=== PATIENT | male | born 1930 ===

== ENCOUNTER 2017-09-15 14:50 | Inpatient (IN) | payer MEDICARE, BC ==
[~2017-09-15] VITALS: Ht 167.6 cm; Wt 87.7 kg
--- NOTE | 2017-09-15 18:38 | PDOC ---
Exam Note: Arik Note: Please also refer to the separate dictated note~for this date of service dictated separately.~Patient seen individually. Discussed the patient with Nursing staff reviewed the chart.~Reviewed interim history and current functioning. Reviewed vital signs,~Labs/ Radiology~and current medications noted below. Continue current treatment with the changes noted in the dictated addendum note Current Medications: I have reviewed the current psychotropics carefully including drug interactions. Risk benefit ratio favors no change other than as noted in my dictated progress note. Diagnosis: Problems: (1) Anxiety disorder (2) Dementia in Alzheimer's disease with delusions (3) Dementia in Alzheimer's disease with depression (4) Dementia, vascular, with delusions (5) Dementia, vascular, with depression (6) Impulse control disorder JAJA SIERRA MD September 15, 2017 18:38
[2017-09-15 18:42] VITALS: BP 156/79
[2017-09-15] MEDS ORDERED: ACETAMINOPHEN 325 MG TABLET PO PRN (19:30)
[2017-09-15] MEDS ORDERED: MAG HYDROX/AL HYDROX/SIMETH 30 ML ORAL.SUSP PO PRN (19:30)
[2017-09-15] MEDS ORDERED: MAGNESIUM HYDROXIDE 2,400 MG/30 ML ORAL.SUSP. PO PRN (19:30)
[2017-09-15] MEDS ORDERED: METHYL SALICYLATE/MENTHOL TOPICAL OINTMENT 29GM TUBE. TP PRN (19:30)
[2017-09-15] MEDS ORDERED: AMLO10TA2 PO (19:31)
[2017-09-15] MEDS ORDERED: METF10003 PO (19:31)
[2017-09-15] MEDS ORDERED: TAMS0.4C2 PO (19:31)
[2017-09-15] MEDS ORDERED: DONE10TA7 PO (19:31)
[2017-09-15] MEDS ORDERED: GLIM4TAB2 PO (19:31)
[2017-09-15] MEDS ORDERED: METO50TA29 PO (19:31)
--- NOTE | 2017-09-15 21:39 | HP ---
ADMIT DATE: 09/15/2017 PSYCHIATRIC ADMISSION HISTORY/EVALUATION This note covers elements not covered in my initial note 09/15/2017. IDENTIFYING DATA: The patient is an 86-year-old male referred to us from the [facility] Emergency Room where he presented from home after the called the police on account of getting aggressive towards his . His was concerned about her own safety and that of his. He has been resistive with cares with his , getting increasingly confused, having multiple accidents in a day and then wanting to leave the house when his was trying to clean him up. He had other misperceptions believing a window was open and there may be people coming into the home amongst other things. He has had some sleep and appetite changes, worsening confusion resulting in the referral to the ER and then to us for inpatient psychiatric stabilization. CHIEF COMPLAINT: "I have been living in [place] for 1-1/2 years. [place] got [place] 1-1[place]2 years ago." Met with the patient's evening of 09/15/2017 together with the patient, discussed with nursing staff. Previously, I discussed with nursing staff together historical information from the [facility] ER. HISTORY OF PRESENT ILLNESS: The patient has a history of dementia, Alzheimer, vascular type. He has been residing at home with his of 16 years, taking care of him. More recently, he has been getting more delusional increasingly confused. He has had some sleep and appetite changes. Appears paranoid, losing some of his remote memory as well. was concerned about her own safety and that of his, resulting in her calling the police and then to the ER. No history of bipolar disorder. PAST PSYCHIATRIC HISTORY: As above. MEDICAL HISTORY: GERD, hypertension, diabetes mellitus, skin cancer bilateral on the ear, ear surgery, collarbone fracture as a child. DRUG ALLERGIES: Negative. Accu-Cheks a.c. and at bedtime. DIET: Regular, takes his medications whole, ambulates independently. CURRENT PSYCHOTROPICS: EMRAD was reviewed. FAMILY HISTORY: Noncontributory. SOCIAL HISTORY: The patient is a of the [place]. He worked for [employer] for 40+ years after he left service. I am not aware of any alcohol or drug abuse, physical, sexual or elder abuse history. He is not known to be a perpetrator. REACTION TO HOSPITALIZATION: The patient oblivious to this. ASSETS: The patient has a supportive . His primary care physician in [place] is Dr. Yoni Sauer, who had delegated reactivation of the DPOA status to the ER physician at [facility]. MENTAL STATUS EXAMINATION: The patient was seen individually evening of 09/15/2017. He is quite pleasant, oriented to himself, oblivious of his surroundings. Insight, judgment, recent and remote memory, attention, concentration, fund of knowledge poor, consistent with his diagnosis. His memory seems to go back to loss of the [place] or soon thereafter. LABORATORY DATA: Reviewed. IMPRESSION: Major neurocognitive disorder, probably vascular with delusion, depression; anxiety disorder, unspecified; impulse control disorder, unspecified; major neurocognitive disorder, possibly Alzheimer with delusion, depression, behavioral disturbance. Rest diagnoses as above. PLAN: Admit to Geropsychiatry Unit at [facility]. I will see the patient daily individually from a psychiatric standpoint. We will continue current psychotropic, start Zyprexa p.r.n. psychosis, agitation. Observe baseline, then make further adjustments. Medical followup per Dr. Valenzuela/Dr. Diana. JAJA SIERRA MD DR: BENNY/jose alberto JOB#: [id number] / [id number]
[2017-09-16 06:19] VITALS: BP 135/60
[2017-09-16 07:52] LABS: BASO % 0 % (0-3); EOS # 0.3 x10^3/uL (0.0-0.7); EOS % 2 % (0-3); HEMOGLOBIN 15.6 g/dL (13.0-17.5); LYMPH # 3.6 x10^3/uL (1.0-4.8); LYMPH % 33 % (24-48); MEAN CORPUSCULAR HEMOGLOBIN 30 pg (25-35); MEAN CORPUSCULAR HGB CONC 34 g/dL (31-37); MEAN CORPUSCULAR VOLUME 89 fL (79-100); MONO # 1.1 x10^3/uL (0.0-1.1); MONO % 10 % (0-9); NEUT % 55 % (31-73); PLATELET COUNT 313 x10^3/uL (140-400); RED CELL DISTRIBUTION WIDTH 13.4 % (11.5-14.5)
[2017-09-16] MEDS ORDERED: metFORMIN 500 MG TABLET PO SCH (08:00)
[2017-09-16 08:05] LABS: ALBUMIN 3.7 g/dL (3.4-5.0); ALBUMIN/GLOBULIN RATIO 0.9 (1.0-1.7); CALCIUM 8.3 mg/dL (8.5-10.1); CREATININE 0.9 mg/dL (0.7-1.3); GFR 80.2; TOTAL BILIRUBIN 1.1 mg/dL (0.2-1.0); TOTAL PROTEIN 7.6 g/dL (6.4-8.2)
[2017-09-16 09:18] VITALS: BP 140/66
[2017-09-16] MEDS: GLIMEPIRIDE 2 MG TABLET PO SCH (09:38)
[2017-09-16] MEDS: TAMSULOSIN 0.4 MG CAP.ER.24H. PO SCH (09:38)
[2017-09-16] MEDS: METOPROLOL SUCC 24HR ER 50 MG TAB.ER.24H. PO SCH (09:39)
[2017-09-16] MEDS: amLODIPine BESYLATE 10 MG TABLET PO SCH (09:39)
[2017-09-16] MEDS: DONEPEZIL HCL 10 MG TABLET PO SCH (09:40)
[2017-09-16 14:29] LABS: THYROID STIM HORMONE (TSH) 3.358 uIU/mL (0.358-3.740)
[2017-09-16 16:26] VITALS: BP 120/73
--- NOTE | 2017-09-16 17:01 | EKG ---
[address] [address] Test Date: 2017-09-16 Test Time: 14:26:19 Pat Name: TAVIA CADENA Department: Room: [facility] 1 Gender: M [employer] Executive Director: RADU : 1930 Requested By: JAJA SIERRA Order Number: [id number] Reading MD: Junior Raza MD Measurements Intervals [place] Rate: 71 P: 0 CT: 192 QRS: 13 QRSD: 94 T: 15 QT: 402 QTc: 442 Interpretive Statements SINUS RHYTHM ATRIAL PREMATURE COMPLEX(ES) QRS(T) CONTOUR ABNORMALITY CONSISTENT WITH INFERIOR INFARCT PROBABLY OLD Electronically Signed On 09-17-2017 12:55:03 CDT by Junior Raza MD
[2017-09-16 19:10] LABS: T3 TOTAL 87 ng/dL (71-180); THYROXINE 5.8 ug/dL (4.5-12.0)
--- NOTE | 2017-09-16 20:52 | PDOC ---
Exam Note: Arik Note: Please also refer to the separate dictated note~for this date of service dictated separately.~Patient seen individually. Discussed the patient with Nursing staff reviewed the chart.~Reviewed interim history and current functioning. Reviewed vital signs,~Labs/ Radiology~and current medications noted below. Continue current treatment with the changes noted in the dictated addendum note Assessment: Vital Signs: Vital Signs Date Time Temp Pulse Resp B/P (MAP) Pulse Ox O2 Delivery O2 Flow Rate FiO2 09/16/17 16:26 97.3 67 16 120/73 (89) 98 I&O Intake and Output 09/16/17 07:00 Intake Total 120 ml Balance 120 ml Intake Oral 120 ml Labs: Laboratory Tests Test 09/16/17 07:32 09/16/17 07:37 Glucose (Fingerstick) 130 mg/dL (70-99) H White Blood Count 11.0 x10^3/uL (4.0-11.0) Red Blood Count 5.20 x10^6/uL (4.30-5.70) Hemoglobin 15.6 g/dL (13.0-17.5) Hematocrit 46.0 % (39.0-53.0) Mean Corpuscular Volume 89 fL (79-100) Mean Corpuscular Hemoglobin 30 pg (25-35) Mean Corpuscular Hemoglobin Concent 34 g/dL (31-37) Red Cell Distribution Width 13.4 % (11.5-14.5) Platelet Count 313 x10^3/uL (140-400) Neutrophils (%) (Auto) 55 % (31-73) Lymphocytes (%) (Auto) 33 % (24-48) Monocytes (%) (Auto) 10 % (0-9) H Eosinophils (%) (Auto) 2 % (0-3) Basophils (%) (Auto) 0 % (0-3) Neutrophils # (Auto) 6.0 x10^3uL (1.8-7.7) Lymphocytes # (Auto) 3.6 x10^3/uL (1.0-4.8) Monocytes # (Auto) 1.1 x10^3/uL (0.0-1.1) Eosinophils # (Auto) 0.3 x10^3/uL (0.0-0.7) Basophils # (Auto) 0.0 x10^3/uL (0.0-0.2) Sodium Level 140 mmol/L (136-145) Potassium Level 4.0 mmol/L (3.5-5.1) Chloride Level 106 mmol/L (98-107) Carbon Dioxide Level 25 mmol/L (21-32) Anion Gap 9 (6-14) Blood Urea Nitrogen 19 mg/dL (8-26) Creatinine 0.9 mg/dL (0.7-1.3) Estimated GFR (Cockcroft-Gault) 80.2 BUN/Creatinine Ratio 21 (6-20) H Glucose Level 141 mg/dL (70-99) H Calcium Level 8.3 mg/dL (8.5-10.1) L Iron Level 75 ug/dL (65-175) Total Iron Binding Capacity 326 ug/dL (250-450) Iron Saturation 23 % (15-34) Total Bilirubin 1.1 mg/dL (0.2-1.0) H Aspartate Amino Transferase (AST) 15 U/L (15-37) Alanine Aminotransferase (ALT) 25 U/L (16-63) Alkaline Phosphatase 43 U/L (46-116) L Total Protein 7.6 g/dL (6.4-8.2) Albumin 3.7 g/dL (3.4-5.0) Albumin/Globulin Ratio 0.9 (1.0-1.7) L Triglycerides Level 132 mg/dL (0-150) Cholesterol Level 152 mg/dL (0-200) LDL Cholesterol, Calculated 86 mg/dL (0-100) VLDL Cholesterol, Calculated 26 mg/dL (0-40) Non-HDL Cholesterol Calculated 112 mg/dL (0-129) HDL Cholesterol 40 mg/dL (40-60) Cholesterol/HDL Ratio 3.0 Vitamin B12 Level 372 pg/mL (247-911) 25-Hydroxy Vitamin D Total 28.0 ng/mL (30-100) L Thyroid Stimulating Hormone (TSH) 3.358 uIU/mL (0.358-3.740) Thyroxine (T4) 5.8 ug/dL (4.5-12.0) Total Triiodothyronine (TT3) 87 ng/dL (71-180) Rapid Plasma Reagin Pending Current Medications: Meds: Current Medications Olanzapine (ZyPREXA ZYDIS) 2.5 mg PRN Q2HR PRN PO PSYCHOSIS; Start 09/15/17 at 18:45 Acetaminophen (Tylenol) 650 mg PRN Q6HRS PRN PO PAIN / TEMP; Start 09/15/17 at 19:30 Multi-Ingredient Ointment (Analgesic [place]) 1 rosalino PRN QID PRN TP MUSCLE PAIN; Start 09/15/17 at 19:30 Al Hydroxide/Mg Hydroxide (Mylanta Plus Xs) 15 ml PRN AFTMEALHC PRN PO DYSPEPSIA; Start 09/15/17 at 19:30 Magnesium Hydroxide (Milk Of Magnesia) 2,400 mg PRN QHS PRN PO CONSTIPATION; Start 09/15/17 at 19:30 Donepezil HCl (Aricept) 10 mg DAILY PO Last administered on 09/16/17at 09:40; Start 09/16/17 at 09:00 Amlodipine Besylate (Norvasc) 10 mg DAILY PO Last administered on 09/16/17at 09: 39; Start 09/16/17 at 09:00 Metoprolol Succinate (Toprol Xl) 50 mg DAILY PO Last administered on 09/16/17at 09:39; Start 09/16/17 at 09:00 Tamsulosin HCl (Flomax) 0.4 mg DAILY PO Last administered on 09/16/17at 09:38; Start 09/16/17 at 09:00 Glimepiride (Amaryl) 8 mg DAILYWBKFT PO Last administered on 09/16/17at 09:38; Start 09/16/17 at 08:00 Metformin HCl (Glucophage) 1,000 mg BIDWMEALS PO Last administered on 09/16/17at 09:38; Start 09/16/17 at 08:00; Stop 09/16/17 at 12:37; Status DC Metformin HCl (Glucophage Xr) 1,000 mg BIDWMEALS PO ; Start 09/17/17 at 08:00 Vitamin D (Vitamin D3) 50,000 unit WEEKLY PO ; Start 09/17/17 at 09:00 Quetiapine Fumarate (SEROquel) 25 mg HS PO ; Start 09/16/17 at 21:00 Active Scripts Active Reported Metoprolol Succinate ( Xl ) (Metoprolol Succinate) 50 Mg Tab.er.24h 50 Mg PO DAILY Metformin Hcl 1,000 Mg Tablet 1,000 Mg PO BIDWMEALS Amlodipine Besylate 10 Mg Tablet 10 Mg PO DAILY Tamsulosin Hcl 0.4 Mg Cap.er.24h 0.4 Mg PO DAILY Glimepiride 4 Mg Tablet 8 Mg PO DAILY Donepezil Hcl 10 Mg Tablet 10 Mg PO DAILY I have reviewed the current psychotropics carefully including drug interactions. Risk benefit ratio favors no change other than as noted in my dictated progress note. Diagnosis: Problems: (1) Anxiety disorder (2) Impulse control disorder (3) Dementia, vascular, with depression (4) Dementia, vascular, with delusions (5) Dementia in Alzheimer's disease with depression (6) Dementia in Alzheimer's disease with delusions JAJA SIERRA MD September 16, 2017 20:52
[2017-09-16] MEDS: QUEtiapine 25 MG TABLET. PO SCH (20:53)
--- NOTE | 2017-09-17 03:12 | CONS ---
DATE OF CONSULTATION: REASON FOR CONSULTATION: Medical management. HISTORY OF PRESENT ILLNESS: The patient is an 86-year-old male patient, who was referred from [facility] Emergency Room. He presented from home after the called the police on account of getting aggressive towards her. His is concerned about her own safety and that of his. He has been resistive with cares with his , getting increasingly confused, having multiple accidents in a day, wanting to leave the house when his was trying to clean him up. Given that he has worsening confusion, he was admitted to this unit for inpatient psychiatric stabilization. When I questioned him, he denied any complaint. PAST MEDICAL HISTORY: Significant for hypertension, type 2 diabetes, hyperlipidemia, benign prostatic hypertrophy, and gastroesophageal reflux disease. PAST PSYCHIATRIC HISTORY: Significant for dementia, Alzheimer, vascular type. He apparently has been residing at home with his for the last 16 years, has been getting more delusional, increasingly confused. PAST SURGICAL HISTORY: Significant for skin cancer, bilateral ____, ear surgery, collar bone fracture as a child. ALLERGIES: The patient has no known drug allergies. MEDICATIONS: He is currently on following medications: Aricept 10 mg at bedtime, Flomax 0.4 mg at bedtime, metoprolol succinate 50 mg once a day, amlodipine besylate 10 mg once a day, metformin 1000 mg twice a day with meals, and glimepiride 8 mg daily. REVIEW OF SYSTEMS: As per history of present illness. PHYSICAL EXAMINATION GENERAL: When I saw him this afternoon, he was sitting comfortably in his chair, eating his lunch, in no apparent distress, was slightly pale, but no jaundice, cyanosis, or thyromegaly. No jugular venous distension. No limb edema. VITAL SIGNS: Her heart rate was 77, blood pressure was 140/66, temperature was 98.4, respiratory rate was 18 and oxygen saturation was 96%. HEAD, EYES, EARS, NOSE, and THROAT: Showed he is normocephalic, atraumatic. NECK: Supple. HEART: Showed normal first and second sounds. No gallop, rub or murmur. CHEST: Clear to auscultation. No crepitation or rhonchi. ABDOMEN: Distended, soft, nontender. No guarding or rigidity. No organomegaly. Hernial orifice intact. Bowel sounds normal. NEUROLOGIC: He was demented, but without any obvious lateralizing sign. He is an awake and alert. All his cranial nerves are intact. EXTREMITIES: He moves extremities without difficulty. He ambulates without assistance or assistive devices. LABORATORY DATA: Showed a serum sodium of 140, potassium 4, chloride 106, bicarbonate 25, anion gap of 9, BUN 19, creatinine 0.9, estimated GFR was 80 mL per minute, his glucose was 141, calcium was 8.3. Total bilirubin, AST, ALT, alkaline phosphatase were normal. Total protein 7.6 and albumin 3.7. White cell count was 11,000, hemoglobin 11, hematocrit 46, MCV 89 and platelet count 313,000 and so in all in all the, the patient seems to be medically stable. His vital signs, his lab work are within acceptable range and medications seem to be appropriate. He does have diarrhea and that could be the result of metformin. I will change that to the extended release form. I will follow all the lab work that are still pending at the time of this dictation and make any necessary recommendation. Thank you, Dr. Parr for allowing me to participate in the care of this patient. JOCELYN CABRERA MD DR: LUNA/jose alberto JOB#: [id number] / [id number]
[2017-09-17 06:13] VITALS: BP 137/67
[2017-09-17 07:14] LABS: HEMOGLOBIN A1C 6.2 % (4.8-5.6)
[2017-09-17] MEDS: amLODIPine BESYLATE 10 MG TABLET PO SCH (09:28)
[2017-09-17] MEDS: DONEPEZIL HCL 10 MG TABLET PO SCH (09:28)
[2017-09-17] MEDS: METOPROLOL SUCC 24HR ER 50 MG TAB.ER.24H. PO SCH (09:28)
[2017-09-17] MEDS: GLIMEPIRIDE 2 MG TABLET PO SCH (09:28)
[2017-09-17] MEDS: TAMSULOSIN 0.4 MG CAP.ER.24H. PO SCH (09:28)
[2017-09-17] MEDS: metFORMIN XR 500 MG TAB.ER.24H PO SCH ×2 (09:31→18:07)
[2017-09-17] MEDS: CHOLECALCIFEROL (VITAMIN D3) 50,000 UNIT CAPSULE PO SCH (09:31)
[2017-09-17 16:08] VITALS: BP 134/68
[2017-09-17] MEDS ORDERED: CHOL500021 PO (16:29)
[2017-09-17] MEDS: QUEtiapine 25 MG TABLET. PO SCH (20:31)
--- NOTE | 2017-09-17 20:44 | PDOC ---
Exam Note: Arik Note: Please also refer to the separate dictated note~for this date of service dictated separately.~Patient seen individually. Discussed the patient with Nursing staff reviewed the chart.~Reviewed interim history and current functioning. Reviewed vital signs,~Labs/ Radiology~and current medications noted below. Continue current treatment with the changes noted in the dictated addendum note Assessment: Vital Signs: Vital Signs Date Time Temp Pulse Resp B/P (MAP) Pulse Ox O2 Delivery O2 Flow Rate FiO2 09/17/17 16:08 97.9 72 20 134/68 (90) 96 I&O Intake and Output 09/17/17 07:00 Intake Total 1200 ml Balance 1200 ml Intake Oral 1200 ml Labs: Laboratory Tests Test 09/17/17 07:27 09/17/17 16:50 09/17/17 19:16 Glucose (Fingerstick) 88 mg/dL (70-99) 89 mg/dL (70-99) 138 mg/dL (70-99) H Current Medications: Meds: Current Medications Olanzapine (ZyPREXA ZYDIS) 2.5 mg PRN Q2HR PRN PO PSYCHOSIS; Start 09/15/17 at 18:45 Acetaminophen (Tylenol) 650 mg PRN Q6HRS PRN PO PAIN / TEMP; Start 09/15/17 at 19:30 Multi-Ingredient Ointment (Analgesic [facility]) 1 rosalino PRN QID PRN TP MUSCLE PAIN; Start 09/15/17 at 19:30 Al Hydroxide/Mg Hydroxide (Mylanta Plus Xs) 15 ml PRN AFTMEALHC PRN PO DYSPEPSIA; Start 09/15/17 at 19:30 Magnesium Hydroxide (Milk Of Magnesia) 2,400 mg PRN QHS PRN PO CONSTIPATION; Start 09/15/17 at 19:30 Donepezil HCl (Aricept) 10 mg DAILY PO Last administered on 09/17/17at 09:28; Start 09/16/17 at 09:00 Amlodipine Besylate (Norvasc) 10 mg DAILY PO Last administered on 09/17/17at 09: 28; Start 09/16/17 at 09:00 Metoprolol Succinate (Toprol Xl) 50 mg DAILY PO Last administered on 09/17/17at 09:28; Start 09/16/17 at 09:00 Tamsulosin HCl (Flomax) 0.4 mg DAILY PO Last administered on 09/17/17 09:28; Start 09/16/17 at 09:00 Glimepiride (Amaryl) 8 mg DAILYWBKFT PO Last administered on 09/17/17 09:28; Start 09/16/17 at 08:00 Metformin HCl (Glucophage) 1,000 mg BIDWMEALS PO Last administered on 09/16/17at 09:38; Start 09/16/17 at 08:00; Stop 09/16/17 at 12:37; Status DC Metformin HCl (Glucophage Xr) 1,000 mg BIDWMEALS PO Last administered on 18:07; Start 09/17/17 at 08:00 Vitamin D (Vitamin D3) 50,000 unit WEEKLY PO Last administered on 09/17/17 09: 31; Start 09/17/17 at 09:00 Quetiapine Fumarate (SEROquel) 25 mg HS PO Last administered on 09/17/17 20:31 ; Start 09/16/17 at 21:00 Active Scripts Active Reported Metoprolol Succinate ( Xl ) (Metoprolol Succinate) 50 Mg Tab.er.24h 50 Mg PO DAILY Metformin Hcl 1,000 Mg Tablet 1,000 Mg PO BIDWMEALS Amlodipine Besylate 10 Mg Tablet 10 Mg PO DAILY Tamsulosin Hcl 0.4 Mg Cap.er.24h 0.4 Mg PO DAILY Glimepiride 4 Mg Tablet 8 Mg PO DAILY Donepezil Hcl 10 Mg Tablet 10 Mg PO DAILY I have reviewed the current psychotropics carefully including drug interactions. Risk benefit ratio favors no change other than as noted in my dictated progress note. Diagnosis: Problems: (1) Anxiety disorder (2) Impulse control disorder (3) Dementia, vascular, with depression (4) Dementia, vascular, with delusions (5) Dementia in Alzheimer's disease with depression (6) Dementia in Alzheimer's disease with delusions JAJA SIERRA MD September 17, 2017 20:44
--- NOTE | 2017-09-17 22:16 | PN ---
DATE: 09/16/2017 This late entry for 09/16/2017 covers elements not covered in my initial note of 09/16/2017. SUBJECTIVE: I met with the patient evening of 09/16/2017. The patient slept 6 hours previous evening. He has had some loose stools at home. Stool sample sent for C. difficile. Metformin changed to extended release in case this is contributing to the diarrhea. UA is negative. He is alert, oriented to his date of and name, but nothing else, compliant with medications, delusional, looking for his , felt he was in [place], [place]. EKG unremarkable. REVIEW OF SYSTEMS: No CV, , pulmonary, eye system symptoms on review. MENTAL STATUS EXAM: Oriented to himself. Insight, judgment, recent and remote memory, attention, concentration, fund of knowledge poor, consistent with his diagnosis. IMPRESSION: Major neurocognitive disorder, Alzheimer, vascular with delusion, depression Rest unchanged. PLAN: Start Seroquel 25 mg p.o. at bedtime. Rest unchanged from initial note. MAN Caitlin SIERRA MD DR: BENNY/jose alberto JOB#: [id number] / [id number]
[2017-09-18 05:53] VITALS: BP 156/79
[2017-09-18] MEDS: DONEPEZIL HCL 10 MG TABLET PO SCH (08:06)
[2017-09-18] MEDS: metFORMIN XR 500 MG TAB.ER.24H PO SCH ×2 (08:06→17:16)
[2017-09-18] MEDS: METOPROLOL SUCC 24HR ER 50 MG TAB.ER.24H. PO SCH (08:06)
[2017-09-18] MEDS: amLODIPine BESYLATE 10 MG TABLET PO SCH (08:07)
[2017-09-18] MEDS: GLIMEPIRIDE 2 MG TABLET PO SCH (08:07)
[2017-09-18] MEDS: TAMSULOSIN 0.4 MG CAP.ER.24H. PO SCH (08:07)
[2017-09-18 18:10] VITALS: BP 120/65
[2017-09-18] MEDS ORDERED: traZODone 50 MG TABLET. PO PRN (18:45)
[2017-09-18] MEDS: SERTRALINE 25 MG TABLET. PO SCH (19:35)
[2017-09-18] MEDS: QUEtiapine 25 MG TABLET. PO SCH (19:35)
--- NOTE | 2017-09-18 22:11 | PDOC ---
Exam Note: Arik Note: Please also refer to the separate dictated note~for this date of service dictated separately.~Patient seen individually. Discussed the patient with Nursing staff reviewed the chart.~Reviewed interim history and current functioning. Reviewed vital signs,~Labs/ Radiology~and current medications noted below. Continue current treatment with the changes noted in the dictated addendum note Assessment: Vital Signs: Vital Signs Date Time Temp Pulse Resp B/P (MAP) Pulse Ox O2 Delivery O2 Flow Rate FiO2 09/18/17 18:10 97.9 60 16 120/65 (83) 95 I&O Intake and Output 09/18/17 07:00 Intake Total 1800 ml Balance 1800 ml Intake Oral 1800 ml Labs: Laboratory Tests Test 09/18/17 07:20 Glucose (Fingerstick) 121 mg/dL (70-99) H Current Medications: Meds: Current Medications Olanzapine (ZyPREXA ZYDIS) 2.5 mg PRN Q2HR PRN PO PSYCHOSIS; Start 09/15/17 at 18:45 Acetaminophen (Tylenol) 650 mg PRN Q6HRS PRN PO PAIN / TEMP; Start 09/15/17 at 19:30 Multi-Ingredient Ointment (Analgesic [place]) 1 rosalino PRN QID PRN TP MUSCLE PAIN; Start 09/15/17 at 19:30 Al Hydroxide/Mg Hydroxide (Mylanta Plus Xs) 15 ml PRN AFTMEALHC PRN PO DYSPEPSIA; Start 09/15/17 at 19:30 Magnesium Hydroxide (Milk Of Magnesia) 2,400 mg PRN QHS PRN PO CONSTIPATION; Start 09/15/17 at 19:30 Donepezil HCl (Aricept) 10 mg DAILY PO Last administered on 09/18/17at 08:06; Start 09/16/17 at 09:00 Amlodipine Besylate (Norvasc) 10 mg DAILY PO Last administered on 09/18/17at 08: 07; Start 09/16/17 at 09:00 Metoprolol Succinate (Toprol Xl) 50 mg DAILY PO Last administered on 09/18/17at 08:06; Start 09/16/17 at 09:00 Tamsulosin HCl (Flomax) 0.4 mg DAILY PO Last administered on 09/18/17at 08:07; Start 09/16/17 at 09:00 Glimepiride (Amaryl) 8 mg DAILYWBKFT PO Last administered on 09/18/17 08:07; Start 09/16/17 at 08:00 Metformin HCl (Glucophage) 1,000 mg BIDWMEALS PO Last administered on 09/16/17at 09:38; Start 09/16/17 at 08:00; Stop 09/16/17 at 12:37; Status DC Metformin HCl (Glucophage Xr) 1,000 mg BIDWMEALS PO Last administered on at 17:16; Start 09/17/17 at 08:00 Vitamin D (Vitamin D3) 50,000 unit WEEKLY PO Last administered on 09/17/17at 09: 31; Start 09/17/17 at 09:00 Quetiapine Fumarate (SEROquel) 25 mg HS PO Last administered on 09/18/17at 19:35 ; Start 09/16/17 at 21:00 Trazodone HCl (Desyrel) 50 mg PRN QHS PRN PO INSOMNIA, SEPTEMBER REPEAT X1; Start 09/18/17 at 18:45 Sertraline HCl (Zoloft) 25 mg QHS PO Last administered on 09/18/17at 19:35; Start 09/18/17 at 21:00 Active Scripts Active Reported Metoprolol Succinate ( Xl ) (Metoprolol Succinate) 50 Mg Tab.er.24h 50 Mg PO DAILY Metformin Hcl 1,000 Mg Tablet 1,000 Mg PO BIDWMEALS Amlodipine Besylate 10 Mg Tablet 10 Mg PO DAILY Tamsulosin Hcl 0.4 Mg Cap.er.24h 0.4 Mg PO DAILY Glimepiride 4 Mg Tablet 8 Mg PO DAILY Donepezil Hcl 10 Mg Tablet 10 Mg PO DAILY I have reviewed the current psychotropics carefully including drug interactions. Risk benefit ratio favors no change other than as noted in my dictated progress note. Diagnosis: Problems: (1) Anxiety disorder (2) Impulse control disorder (3) Dementia, vascular, with depression (4) Dementia, vascular, with delusions (5) Dementia in Alzheimer's disease with depression (6) Dementia in Alzheimer's disease with delusions JAJA SIERRA MD September 18, 2017 22:11
--- NOTE | 2017-09-19 00:20 | PN ---
DATE: 09/17/2017 This late entry for 09/17/2017 covers the elements not covered in my initial note 09/17/2017. I met with the patient in the evening. The patient slept 5-3/4 hours previous evening. Has been wandering, confused, otherwise pleasant, compliant with medications. Stool sample was negative for C. diff. EKG, QT corrected is 442 milliseconds. We will repeat EKG on Saturday in 2 days. REVIEW OF SYSTEMS: No CV, , pulmonary, eye, ENT system symptoms on review. Reliability poor. MENTAL STATUS EXAM: Oriented to himself. Insight, judgment, recent and remote memory, attention, concentration, fund of knowledge poor, consistent with his diagnosis. IMPRESSION: Major neurocognitive disorder, vascular with delusion, depression, behavioral disturbance. Rest unchanged. PLAN: Continue current psychotropics, start Zoloft 25 mg a day. Maintain Seroquel 25 mg at bedtime. MAN Caitlin SIERRA MD DR: BENNY/jose alberto JOB#: [id number] / [id number]
[2017-09-19 06:30] VITALS: BP 151/67
[2017-09-19] MEDS: GLIMEPIRIDE 2 MG TABLET PO SCH (08:00)
[2017-09-19] MEDS: TAMSULOSIN 0.4 MG CAP.ER.24H. PO SCH (09:00)
[2017-09-19] MEDS: DONEPEZIL HCL 10 MG TABLET PO SCH (09:00)
[2017-09-19] MEDS: METOPROLOL SUCC 24HR ER 50 MG TAB.ER.24H. PO SCH (09:00)
[2017-09-19] MEDS: amLODIPine BESYLATE 10 MG TABLET PO SCH (09:00)
[2017-09-19] MEDS: metFORMIN XR 500 MG TAB.ER.24H PO SCH ×2 (16:28→16:47)
[2017-09-19 18:09] VITALS: BP 127/58
[2017-09-19] MEDS: QUEtiapine 25 MG TABLET. PO SCH (19:57)
[2017-09-19] MEDS: SERTRALINE 25 MG TABLET. PO SCH (19:57)
--- NOTE | 2017-09-19 20:41 | PDOC ---
Exam Note: Arik Note: Please also refer to the separate dictated note~for this date of service dictated separately.~Patient seen individually. Discussed the patient with Nursing staff reviewed the chart.~Reviewed interim history and current functioning. Reviewed vital signs,~Labs/ Radiology~and current medications noted below. Continue current treatment with the changes noted in the dictated addendum note Assessment: Vital Signs: Vital Signs Date Time Temp Pulse Resp B/P (MAP) Pulse Ox O2 Delivery O2 Flow Rate FiO2 09/19/17 18:09 97.2 66 20 127/58 (81) 96 09/19/17 06:30 Room Air I&O Intake and Output 09/19/17 07:00 Intake Total 1320 ml Output Total 1 ml Balance 1319 ml Intake Oral 1320 ml Output Urine Total 1 ml Labs: Laboratory Tests Test 09/19/17 07:33 Glucose (Fingerstick) 122 mg/dL (70-99) H Current Medications: Meds: Current Medications Olanzapine (ZyPREXA ZYDIS) 2.5 mg PRN Q2HR PRN PO PSYCHOSIS Last administered on 09/19/17at 16:29; Start 09/15/17 at 18:45 Acetaminophen (Tylenol) 650 mg PRN Q6HRS PRN PO PAIN / TEMP; Start 09/15/17 at 19:30 Multi-Ingredient Ointment (Analgesic [place]) 1 rosalino PRN QID PRN TP MUSCLE PAIN; Start 09/15/17 at 19:30 Al Hydroxide/Mg Hydroxide (Mylanta Plus Xs) 15 ml PRN AFTMEALHC PRN PO DYSPEPSIA; Start 09/15/17 at 19:30 Magnesium Hydroxide (Milk Of Magnesia) 2,400 mg PRN QHS PRN PO CONSTIPATION; Start 09/15/17 at 19:30 Donepezil HCl (Aricept) 10 mg DAILY PO Last administered on 09/18/17at 08:06; Start 09/16/17 at 09:00 Amlodipine Besylate (Norvasc) 10 mg DAILY PO Last administered on 09/18/17at 08: 07; Start 09/16/17 at 09:00 Metoprolol Succinate (Toprol Xl) 50 mg DAILY PO Last administered on 09/18/17at 08:06; Start 09/16/17 at 09:00 Tamsulosin HCl (Flomax) 0.4 mg DAILY PO Last administered on 09/18/17 08:07; Start 09/16/17 at 09:00 Glimepiride (Amaryl) 8 mg DAILYWBKFT PO Last administered on 09/18/17at 08:07; Start 09/16/17 at 08:00 Metformin HCl (Glucophage) 1,000 mg BIDWMEALS PO Last administered on 09/16/17at 09:38; Start 09/16/17 at 08:00; Stop 09/16/17 at 12:37; Status DC Metformin HCl (Glucophage Xr) 1,000 mg BIDWMEALS PO Last administered on at 16:47; Start 09/17/17 at 08:00 Vitamin D (Vitamin D3) 50,000 unit WEEKLY PO Last administered on 09/17/17at 09: 31; Start 09/17/17 at 09:00 Quetiapine Fumarate (SEROquel) 25 mg HS PO Last administered on 09/19/17at 19:57 ; Start 09/16/17 at 21:00 Trazodone HCl (Desyrel) 50 mg PRN QHS PRN PO INSOMNIA, MAY REPEAT X1; Start 09/18/17 at 18:45 Sertraline HCl (Zoloft) 25 mg QHS PO Last administered on 09/19/17 19:57; Start 09/18/17 at 21:00 Quetiapine Fumarate (SEROquel) 12.5 mg 0900,1300 PO ; Start 09/20/17 at 09:00 Active Scripts Active Reported Metoprolol Succinate ( Xl ) (Metoprolol Succinate) 50 Mg Tab.er.24h 50 Mg PO DAILY Metformin Hcl 1,000 Mg Tablet 1,000 Mg PO BIDWMEALS Amlodipine Besylate 10 Mg Tablet 10 Mg PO DAILY Tamsulosin Hcl 0.4 Mg Cap.er.24h 0.4 Mg PO DAILY Glimepiride 4 Mg Tablet 8 Mg PO DAILY Donepezil Hcl 10 Mg Tablet 10 Mg PO DAILY I have reviewed the current psychotropics carefully including drug interactions. Risk benefit ratio favors no change other than as noted in my dictated progress note. Diagnosis: Problems: (1) Anxiety disorder (2) Impulse control disorder (3) Dementia, vascular, with depression (4) Dementia, vascular, with delusions (5) Dementia in Alzheimer's disease with depression (6) Dementia in Alzheimer's disease with delusions JAJA SIERRA MD September 19, 2017 20:41
[2017-09-20 05:23] VITALS: BP 140/74
[2017-09-20] MEDS: amLODIPine BESYLATE 10 MG TABLET PO SCH (08:08)
[2017-09-20] MEDS: TAMSULOSIN 0.4 MG CAP.ER.24H. PO SCH (08:08)
[2017-09-20] MEDS: GLIMEPIRIDE 2 MG TABLET PO SCH (08:08)
[2017-09-20] MEDS: DONEPEZIL HCL 10 MG TABLET PO SCH (08:08)
[2017-09-20] MEDS: METOPROLOL SUCC 24HR ER 50 MG TAB.ER.24H. PO SCH (08:09)
[2017-09-20] MEDS: metFORMIN XR 500 MG TAB.ER.24H PO SCH ×2 (08:09→17:04)
[2017-09-20] MEDS: QUEtiapine 25 MG TABLET. PO SCH ×3 (08:10→21:30)
[2017-09-20 16:25] VITALS: BP 119/64
--- NOTE | 2017-09-20 20:41 | PDOC ---
Exam Note: Arik Note: Please also refer to the separate dictated note~for this date of service dictated separately.~Patient seen individually. Discussed the patient with Nursing staff reviewed the chart.~Reviewed interim history and current functioning. Reviewed vital signs,~Labs/ Radiology~and current medications noted below. Continue current treatment with the changes noted in the dictated addendum note Assessment: Vital Signs: Vital Signs Date Time Temp Pulse Resp B/P (MAP) Pulse Ox O2 Delivery O2 Flow Rate FiO2 09/20/17 16:25 95.7 69 20 119/64 (82) 94 09/19/17 06:30 Room Air I&O Intake and Output 09/20/17 07:00 Intake Total 600 ml Balance 600 ml Intake Oral 600 ml # Bowel Movements 1 Labs: Laboratory Tests Test 09/20/17 08:13 Glucose (Fingerstick) 228 mg/dL (70-99) H Current Medications: Meds: Current Medications Olanzapine (ZyPREXA ZYDIS) 2.5 mg PRN Q2HR PRN PO PSYCHOSIS Last administered on 09/19/17at 16:29; Start 09/15/17 at 18:45 Acetaminophen (Tylenol) 650 mg PRN Q6HRS PRN PO PAIN / TEMP; Start 09/15/17 at 19:30 Multi-Ingredient Ointment (Analgesic [place]) 1 rosalino PRN QID PRN TP MUSCLE PAIN; Start 09/15/17 at 19:30 Al Hydroxide/Mg Hydroxide (Mylanta Plus Xs) 15 ml PRN AFTMEALHC PRN PO DYSPEPSIA; Start 09/15/17 at 19:30 Magnesium Hydroxide (Milk Of Magnesia) 2,400 mg PRN QHS PRN PO CONSTIPATION; Start 09/15/17 at 19:30 Donepezil HCl (Aricept) 10 mg DAILY PO Last administered on 09/20/17at 08:08; Start 09/16/17 at 09:00 Amlodipine Besylate (Norvasc) 10 mg DAILY PO Last administered on 09/20/17 08: 08; Start 09/16/17 at 09:00 Metoprolol Succinate (Toprol Xl) 50 mg DAILY PO Last administered on 09/20/17 08:09; Start 09/16/17 at 09:00 Tamsulosin HCl (Flomax) 0.4 mg DAILY PO Last administered on 09/20/17 08:08; Start 09/16/17 at 09:00 Glimepiride (Amaryl) 8 mg DAILYWBKFT PO Last administered on 09/20/17 08:08; Start 09/16/17 at 08:00 Metformin HCl (Glucophage) 1,000 mg BIDWMEALS PO Last administered on 09/16/17at 09:38; Start 09/16/17 at 08:00; Stop 09/16/17 at 12:37; Status DC Metformin HCl (Glucophage Xr) 1,000 mg BIDWMEALS PO Last administered on at 17:04; Start 09/17/17 at 08:00 Vitamin D (Vitamin D3) 50,000 unit WEEKLY PO Last administered on 09/17/17at 09: 31; Start 09/17/17 at 09:00 Quetiapine Fumarate (SEROquel) 25 mg HS PO Last administered on 09/19/17at 19:57 ; Start 09/16/17 at 21:00 Trazodone HCl (Desyrel) 50 mg PRN QHS PRN PO INSOMNIA, MAY REPEAT X1; Start 09/18/17 at 18:45 Sertraline HCl (Zoloft) 25 mg QHS PO Last administered on 09/19/17at 19:57; Start 09/18/17 at 21:00 Quetiapine Fumarate (SEROquel) 12.5 mg 0900,1300 PO Last administered on at 13:12; Start 09/20/17 at 09:00 Active Scripts Active Reported Metoprolol Succinate ( Xl ) (Metoprolol Succinate) 50 Mg Tab.er.24h 50 Mg PO DAILY Metformin Hcl 1,000 Mg Tablet 1,000 Mg PO BIDWMEALS Amlodipine Besylate 10 Mg Tablet 10 Mg PO DAILY Tamsulosin Hcl 0.4 Mg Cap.er.24h 0.4 Mg PO DAILY Glimepiride 4 Mg Tablet 8 Mg PO DAILY Donepezil Hcl 10 Mg Tablet 10 Mg PO DAILY I have reviewed the current psychotropics carefully including drug interactions. Risk benefit ratio favors no change other than as noted in my dictated progress note. Diagnosis: Problems: (1) Anxiety disorder (2) Impulse control disorder (3) Dementia, vascular, with depression (4) Dementia, vascular, with delusions (5) Dementia in Alzheimer's disease with depression (6) Dementia in Alzheimer's disease with delusions JAJA SIERRA MD September 20, 2017 20:40
[2017-09-20] MEDS: SERTRALINE 25 MG TABLET. PO SCH (21:31)
--- NOTE | 2017-09-21 03:47 | PN ---
DATE: 09/18/2017 PSYCHIATRIC PROGRESS NOTE This late entry 09/18/2017 covers elements not covered in my initial note 09/18/2017. SUBJECTIVE: I met with the patient evening of 09/18/2017. The patient slept 4 hours previous evening, remains quite confused, clinging with female patients due to his worsening anxiety consequent of memory deficits. He is redirectable, confused, depressed. REVIEW OF SYSTEMS: No CV, , pulmonary, eye, ENT system symptoms on review. MENTAL STATUS EXAM: Oriented to himself. Insight, judgment, recent and remote memory, attention, concentration, fund of knowledge poor, consistent with his diagnosis mentioned in my initial note. IMPRESSION: Major neurocognitive disorder, Alzheimer, vascular with delusion, depression, behavioral disturbance. Rest unchanged. PLAN: Start Zoloft 25 mg p.o. at bedtime, trazodone 50 mg at bedtime p.r.n., september repeat x 1 for insomnia. Continue rest unchanged. MAN Caitlin SIERRA MD DR: BENNY/jose alberto JOB#: [id number] / [id number]
--- NOTE | 2017-09-21 03:56 | PN ---
DATE: 09/19/2017 PSYCHIATRIC PROGRESS NOTE This late entry 09/19/2017 covers elements not covered in my initial note. SUBJECTIVE: I met with the patient in the evening, staffed at treatment team meeting with the entire team in the morning. The patient remains confused, less intrusive. Slept 6-3/4 hours previous evening, 5 hours average, appetite 100%. He gets a little anxious, irritable, labile at times, but redirectable. He received Zyprexa at 1630 p.r.n. with some benefit. REVIEW OF SYSTEMS: No CV, , pulmonary, eye, ENT system symptoms on review. MENTAL STATUS EXAM: Oriented to himself. Insight, judgment, recent and remote memory, attention, concentration, fund of knowledge poor, consistent with his diagnosis mentioned in my initial note. IMPRESSION: Major neurocognitive disorder, Alzheimer, vascular with delusion, depression, behavioral disturbance. Rest unchanged. PLAN: Start Seroquel 12.5 mg 9:00 a.m. and 1:00 p.m. Continue rest unchanged. MAN Caitlin SIERRA MD DR: BENNY/jose alberto JOB#: [id number] / [id number]
[2017-09-21 05:41] VITALS: BP 139/78
[2017-09-21 05:44] VITALS: BP 139/78
[2017-09-21] MEDS: amLODIPine BESYLATE 10 MG TABLET PO SCH (07:53)
[2017-09-21] MEDS: metFORMIN XR 500 MG TAB.ER.24H PO SCH ×2 (07:53→18:13)
[2017-09-21] MEDS: DONEPEZIL HCL 10 MG TABLET PO SCH (07:53)
[2017-09-21] MEDS: GLIMEPIRIDE 2 MG TABLET PO SCH (07:54)
[2017-09-21] MEDS: TAMSULOSIN 0.4 MG CAP.ER.24H. PO SCH (07:54)
[2017-09-21] MEDS: QUEtiapine 25 MG TABLET. PO SCH ×3 (07:54→20:30)
[2017-09-21] MEDS: METOPROLOL SUCC 24HR ER 50 MG TAB.ER.24H. PO SCH (07:55)
[2017-09-21 08:35] LABS: HEMATOCRIT 44.9 % (39.0-53.0); HEMOGLOBIN 15.5 g/dL (13.0-17.5); RED BLOOD COUNT 5.09 x10^6/uL (4.30-5.70); RED CELL DISTRIBUTION WIDTH 13.4 % (11.5-14.5); WHITE BLOOD COUNT 9.5 x10^3/uL (4.0-11.0)
[2017-09-21 09:00] LABS: ALBUMIN 3.6 g/dL (3.4-5.0); CREATININE 0.9 mg/dL (0.7-1.3); GFR 80.2; POTASSIUM 3.8 mmol/L (3.5-5.1); TOTAL BILIRUBIN 0.7 mg/dL (0.2-1.0); TOTAL PROTEIN 7.3 g/dL (6.4-8.2)
[2017-09-21 16:01] VITALS: BP 128/71
[2017-09-21] MEDS: SERTRALINE 25 MG TABLET. PO SCH (20:30)
[2017-09-21] MEDS: SERTRALINE 50 MG TABLET. PO SCH (20:33)
--- NOTE | 2017-09-21 22:44 | PDOC ---
Exam Note: Arik Note: Please also refer to the separate dictated note~for this date of service dictated separately.~Patient seen individually. Discussed the patient with Nursing staff reviewed the chart.~Reviewed interim history and current functioning. Reviewed vital signs,~Labs/ Radiology~and current medications noted below. Continue current treatment with the changes noted in the dictated addendum note Assessment: Vital Signs: Vital Signs Date Time Temp Pulse Resp B/P (MAP) Pulse Ox O2 Delivery O2 Flow Rate FiO2 09/21/17 16:01 97.4 68 16 128/71 (90) 97 09/21/17 05:41 Room Air I&O Intake and Output 09/21/17 07:00 Intake Total 1200 ml Balance 1200 ml Intake Oral 1200 ml Labs: Laboratory Tests Test 09/21/17 08:07 09/21/17 08:09 Glucose (Fingerstick) 164 mg/dL (70-99) H White Blood Count 9.5 x10^3/uL (4.0-11.0) Red Blood Count 5.09 x10^6/uL (4.30-5.70) Hemoglobin 15.5 g/dL (13.0-17.5) Hematocrit 44.9 % (39.0-53.0) Mean Corpuscular Volume 88 fL (79-100) Mean Corpuscular Hemoglobin 30 pg (25-35) Mean Corpuscular Hemoglobin Concent 35 g/dL (31-37) Red Cell Distribution Width 13.4 % (11.5-14.5) Platelet Count 325 x10^3/uL (140-400) Sodium Level 141 mmol/L (136-145) Potassium Level 3.8 mmol/L (3.5-5.1) Chloride Level 104 mmol/L (98-107) Carbon Dioxide Level 25 mmol/L (21-32) Anion Gap 12 (6-14) Blood Urea Nitrogen 16 mg/dL (8-26) Creatinine 0.9 mg/dL (0.7-1.3) Estimated GFR (Cockcroft-Gault) 80.2 BUN/Creatinine Ratio 18 (6-20) Glucose Level 169 mg/dL (70-99) H Calcium Level 9.0 mg/dL (8.5-10.1) Total Bilirubin 0.7 mg/dL (0.2-1.0) Aspartate Amino Transferase (AST) 18 U/L (15-37) Alanine Aminotransferase (ALT) 29 U/L (16-63) Alkaline Phosphatase 49 U/L (46-116) Total Protein 7.3 g/dL (6.4-8.2) Albumin 3.6 g/dL (3.4-5.0) Albumin/Globulin Ratio 1.0 (1.0-1.7) Current Medications: Meds: Current Medications Olanzapine (ZyPREXA ZYDIS) 2.5 mg PRN Q2HR PRN PO PSYCHOSIS Last administered on 09/19/17at 16:29; Start 09/15/17 at 18:45 Acetaminophen (Tylenol) 650 mg PRN Q6HRS PRN PO PAIN / TEMP; Start 09/15/17 at 19:30 Multi-Ingredient Ointment (Analgesic [place]) 1 rosalino PRN QID PRN TP MUSCLE PAIN; Start 09/15/17 at 19:30 Al Hydroxide/Mg Hydroxide (Mylanta Plus Xs) 15 ml PRN AFTMEALHC PRN PO DYSPEPSIA; Start 09/15/17 at 19:30 Magnesium Hydroxide (Milk Of Magnesia) 2,400 mg PRN QHS PRN PO CONSTIPATION; Start 09/15/17 at 19:30 Donepezil HCl (Aricept) 10 mg DAILY PO Last administered on 09/21/17at 07:53; Start 09/16/17 at 09:00 Amlodipine Besylate (Norvasc) 10 mg DAILY PO Last administered on 09/21/17at 07: 53; Start 09/16/17 at 09:00 Metoprolol Succinate (Toprol Xl) 50 mg DAILY PO Last administered on 09/21/17at 07:55; Start 09/16/17 at 09:00 Tamsulosin HCl (Flomax) 0.4 mg DAILY PO Last administered on 09/21/17 07:54; Start 09/16/17 at 09:00 Glimepiride (Amaryl) 8 mg DAILYWBKFT PO Last administered on 09/21/17 07:54; Start 09/16/17 at 08:00 Metformin HCl (Glucophage) 1,000 mg BIDWMEALS PO Last administered on 09/16/17at 09:38; Start 09/16/17 at 08:00; Stop 09/16/17 at 12:37; Status DC Metformin HCl (Glucophage Xr) 1,000 mg BIDWMEALS PO Last administered on at 18:13; Start 09/17/17 at 08:00 Vitamin D (Vitamin D3) 50,000 unit WEEKLY PO Last administered on 09/17/17at 09: 31; Start 09/17/17 at 09:00 Quetiapine Fumarate (SEROquel) 25 mg HS PO Last administered on 09/21/17at 20:30 ; Start 09/16/17 at 21:00 Trazodone HCl (Desyrel) 50 mg PRN QHS PRN PO INSOMNIA, SEPTEMBER REPEAT X1; Start 09/18/17 at 18:45 Sertraline HCl (Zoloft) 25 mg QHS PO Last administered on 09/21/17at 20:30; Start 09/18/17 at 21:00; Stop 09/21/17 at 23:50 Quetiapine Fumarate (SEROquel) 12.5 mg 0900,1300 PO Last administered on at 13:12; Start 09/20/17 at 09:00 Sertraline HCl (Zoloft) 50 mg QHS PO Last administered on 09/21/17at 20:33; Start 09/21/17 at 21:00 Active Scripts Active Reported Metoprolol Succinate ( Xl ) (Metoprolol Succinate) 50 Mg Tab.er.24h 50 Mg PO DAILY Metformin Hcl 1,000 Mg Tablet 1,000 Mg PO BIDWMEALS Amlodipine Besylate 10 Mg Tablet 10 Mg PO DAILY Tamsulosin Hcl 0.4 Mg Cap.er.24h 0.4 Mg PO DAILY Glimepiride 4 Mg Tablet 8 Mg PO DAILY Donepezil Hcl 10 Mg Tablet 10 Mg PO DAILY I have reviewed the current psychotropics carefully including drug interactions. Risk benefit ratio favors no change other than as noted in my dictated progress note. Diagnosis: Problems: (1) Anxiety disorder (2) Impulse control disorder (3) Dementia, vascular, with depression (4) Dementia, vascular, with delusions (5) Dementia in Alzheimer's disease with depression (6) Dementia in Alzheimer's disease with delusions JAJA SIERRA MD September 21, 2017 22:44
[2017-09-22 05:26] VITALS: BP 137/59
[2017-09-22] MEDS: GLIMEPIRIDE 2 MG TABLET PO SCH (07:53)
[2017-09-22] MEDS: metFORMIN XR 500 MG TAB.ER.24H PO SCH ×2 (07:54→17:07)
[2017-09-22] MEDS: TAMSULOSIN 0.4 MG CAP.ER.24H. PO SCH (07:54)
[2017-09-22] MEDS: DONEPEZIL HCL 10 MG TABLET PO SCH (07:54)
[2017-09-22] MEDS: amLODIPine BESYLATE 10 MG TABLET PO SCH (07:55)
[2017-09-22] MEDS: QUEtiapine 25 MG TABLET. PO SCH ×3 (07:55→20:07)
[2017-09-22 07:59] VITALS: BP 139/78
[2017-09-22] MEDS: METOPROLOL SUCC 24HR ER 50 MG TAB.ER.24H. PO SCH (08:00)
[2017-09-22 16:39] VITALS: BP 119/70
[2017-09-22] MEDS: QUEtiapine 50 MG TABLET. PO SCH ×2 (18:00→20:07)
[2017-09-22] MEDS: SERTRALINE 50 MG TABLET. PO SCH (20:07)
--- NOTE | 2017-09-22 20:42 | PDOC ---
Exam Note: Arik Note: Please also refer to the separate dictated note~for this date of service dictated separately.~Patient seen individually. Discussed the patient with Nursing staff reviewed the chart.~Reviewed interim history and current functioning. Reviewed vital signs,~Labs/ Radiology~and current medications noted below. Continue current treatment with the changes noted in the dictated addendum note Assessment: Vital Signs: Vital Signs Date Time Temp Pulse Resp B/P (MAP) Pulse Ox O2 Delivery O2 Flow Rate FiO2 09/22/17 16:39 97.4 70 20 119/70 (86) 94 09/21/17 05:41 Room Air I&O Intake and Output 09/22/17 07:00 Intake Total 840 ml Balance 840 ml Intake Oral 840 ml Labs: Laboratory Tests Test 09/22/17 07:35 Glucose (Fingerstick) 115 mg/dL (70-99) H Current Medications: Meds: Current Medications Olanzapine (ZyPREXA ZYDIS) 2.5 mg PRN Q2HR PRN PO PSYCHOSIS Last administered on 09/19/17at 16:29; Start 09/15/17 at 18:45 Acetaminophen (Tylenol) 650 mg PRN Q6HRS PRN PO PAIN / TEMP; Start 09/15/17 at 19:30 Multi-Ingredient Ointment (Analgesic [place]) 1 rosalino PRN QID PRN TP MUSCLE PAIN; Start 09/15/17 at 19:30 Al Hydroxide/Mg Hydroxide (Mylanta Plus Xs) 15 ml PRN AFTMEALHC PRN PO DYSPEPSIA; Start 09/15/17 at 19:30 Magnesium Hydroxide (Milk Of Magnesia) 2,400 mg PRN QHS PRN PO CONSTIPATION; Start 09/15/17 at 19:30 Donepezil HCl (Aricept) 10 mg DAILY PO Last administered on 09/22/17 07:54; Start 09/16/17 at 09:00 Amlodipine Besylate (Norvasc) 10 mg DAILY PO Last administered on 09/22/17 07: 55; Start 09/16/17 at 09:00 Metoprolol Succinate (Toprol Xl) 50 mg DAILY PO Last administered on 09/22/17 08:00; Start 09/16/17 at 09:00 Tamsulosin HCl (Flomax) 0.4 mg DAILY PO Last administered on 09/22/17 07:54; Start 09/16/17 at 09:00 Glimepiride (Amaryl) 8 mg DAILYWBKFT PO Last administered on 09/22/17 07:53; Start 09/16/17 at 08:00 Metformin HCl (Glucophage) 1,000 mg BIDWMEALS PO Last administered on 09/16/17 09:38; Start 09/16/17 at 08:00; Stop 09/16/17 at 12:37; Status DC Metformin HCl (Glucophage Xr) 1,000 mg BIDWMEALS PO Last administered on 17:07; Start 09/17/17 at 08:00 Vitamin D (Vitamin D3) 50,000 unit WEEKLY PO Last administered on 09/17/17at 09: 31; Start 09/17/17 at 09:00 Quetiapine Fumarate (SEROquel) 25 mg HS PO Last administered on 09/21/17 20:30 ; Start 09/16/17 at 21:00 Trazodone HCl (Desyrel) 50 mg PRN QHS PRN PO INSOMNIA, MAY REPEAT X1; Start 09/18/17 at 18:45 Sertraline HCl (Zoloft) 25 mg QHS PO Last administered on 09/21/17at 20:30; Start 09/18/17 at 21:00; Stop 09/21/17 at 23:50; Status DC Quetiapine Fumarate (SEROquel) 12.5 mg 0900,1300 PO Last administered on at 13:53; Start 09/20/17 at 09:00 Sertraline HCl (Zoloft) 50 mg QHS PO Last administered on 09/22/17 20:07; Start 09/21/17 at 21:00 Quetiapine Fumarate (SEROquel) 25 mg HS PO Last administered on 09/22/17 20:07 ; Start 09/22/17 at 18:00; Stop 09/22/17 at 21:01 Active Scripts Active Reported Metoprolol Succinate ( Xl ) (Metoprolol Succinate) 50 Mg Tab.er.24h 50 Mg PO DAILY Metformin Hcl 1,000 Mg Tablet 1,000 Mg PO BIDWMEALS Amlodipine Besylate 10 Mg Tablet 10 Mg PO DAILY Tamsulosin Hcl 0.4 Mg Cap.er.24h 0.4 Mg PO DAILY Glimepiride 4 Mg Tablet 8 Mg PO DAILY Donepezil Hcl 10 Mg Tablet 10 Mg PO DAILY I have reviewed the current psychotropics carefully including drug interactions. Risk benefit ratio favors no change other than as noted in my dictated progress note. Diagnosis: Problems: (1) Anxiety disorder (2) Impulse control disorder (3) Dementia, vascular, with depression (4) Dementia, vascular, with delusions (5) Dementia in Alzheimer's disease with depression (6) Dementia in Alzheimer's disease with delusions JAJA SIERRA MD September 22, 2017 20:42
--- NOTE | 2017-09-22 22:22 | PN ---
DATE: 09/20/2017 This is a late entry for 09/20/2017 covers elements not covered in my initial note of 09/20/2017. SUBJECTIVE: The patient has been somewhat intrusive with another female patient, certainly confused with short-term memory deficits. REVIEW OF SYSTEMS: No CV, , pulmonary, eye system symptoms on review. MENTAL STATUS EXAM: Oriented to himself. Insight, judgment, recent and remote memory, attention, concentration, fund of knowledge poor, consistent with his diagnosis mentioned in my initial note. PLAN: Continue psychotropics mentioned in my initial note including Seroquel is at 12.5 mg at bedtime. MAN YasmaniPage SIERRA MD DR: BENNY/jose alberto JOB#: [id number] / [id number]
--- NOTE | 2017-09-23 00:04 | PN ---
DATE: 09/21/2017 PSYCHIATRIC PROGRESS NOTE HISTORY OF PRESENT ILLNESS: This is a late entry of 09/21/2017, covers elements not covered in my initial note of 09/21/2017. I met with the patient in the evening, the patient slept 7-1/4 hours previous evening. He has been delusional, worried about paying for his things, confused, intrusive with another female demented patient believing his , withdrawn to his room at other times. REVIEW OF SYSTEMS: No CV, , pulmonary, eye, ENT system symptoms on review. Reliability is poor. MENTAL STATUS EXAM: Oriented to himself. Insight, judgment, recent and remote memory, attention, concentration, fund of knowledge poor, consistent with his diagnosis mentioned in my initial note. PLAN: Increase Zoloft to 50 mg a day starting 09/22/2017. Continue rest unchanged. MAN Caitlin SIERRA MD DR: BENNY/jose alberto JOB#: [id number] / [id number]
[2017-09-23 05:41] VITALS: BP 143/66
[2017-09-23] MEDS: metFORMIN XR 500 MG TAB.ER.24H PO SCH ×2 (08:15→16:41)
[2017-09-23] MEDS: amLODIPine BESYLATE 10 MG TABLET PO SCH (08:16)
[2017-09-23] MEDS: DONEPEZIL HCL 10 MG TABLET PO SCH (08:16)
[2017-09-23] MEDS: METOPROLOL SUCC 24HR ER 50 MG TAB.ER.24H. PO SCH (08:16)
[2017-09-23] MEDS: TAMSULOSIN 0.4 MG CAP.ER.24H. PO SCH (08:16)
[2017-09-23] MEDS: GLIMEPIRIDE 2 MG TABLET PO SCH (08:17)
[2017-09-23] MEDS: QUEtiapine 25 MG TABLET. PO SCH ×3 (09:55→19:23)
[2017-09-23 15:49] VITALS: BP 158/67
[2017-09-23] MEDS: SERTRALINE 50 MG TABLET. PO SCH (19:23)
--- NOTE | 2017-09-23 20:46 | PDOC ---
Exam Note: Arik Note: Please also refer to the separate dictated note~for this date of service dictated separately.~Patient seen individually. Discussed the patient with Nursing staff reviewed the chart.~Reviewed interim history and current functioning. Reviewed vital signs,~Labs/ Radiology~and current medications noted below. Continue current treatment with the changes noted in the dictated addendum note Assessment: Vital Signs: Vital Signs Date Time Temp Pulse Resp B/P (MAP) Pulse Ox O2 Delivery O2 Flow Rate FiO2 09/23/17 15:49 97.0 62 16 158/67 (97) 98 09/23/17 05:41 Room Air I&O Intake and Output 09/23/17 07:00 Intake Total 600 ml Balance 600 ml Intake Oral 600 ml Labs: Laboratory Tests Test 09/23/17 07:17 Glucose (Fingerstick) 142 mg/dL (70-99) H Current Medications: Meds: Current Medications Olanzapine (ZyPREXA ZYDIS) 2.5 mg PRN Q2HR PRN PO PSYCHOSIS Last administered on 09/23/17at 16:41; Start 09/15/17 at 18:45 Acetaminophen (Tylenol) 650 mg PRN Q6HRS PRN PO PAIN / TEMP; Start 09/15/17 at 19:30 Multi-Ingredient Ointment (Analgesic [place]) 1 rosalino PRN QID PRN TP MUSCLE PAIN; Start 09/15/17 at 19:30 Al Hydroxide/Mg Hydroxide (Mylanta Plus Xs) 15 ml PRN AFTMEALHC PRN PO DYSPEPSIA; Start 09/15/17 at 19:30 Magnesium Hydroxide (Milk Of Magnesia) 2,400 mg PRN QHS PRN PO CONSTIPATION; Start 09/15/17 at 19:30 Donepezil HCl (Aricept) 10 mg DAILY PO Last administered on 09/23/17at 08:16; Start 09/16/17 at 09:00 Amlodipine Besylate (Norvasc) 10 mg DAILY PO Last administered on 09/23/17 08: 16; Start 09/16/17 at 09:00 Metoprolol Succinate (Toprol Xl) 50 mg DAILY PO Last administered on 09/23/17 08:16; Start 09/16/17 at 09:00 Tamsulosin HCl (Flomax) 0.4 mg DAILY PO Last administered on 5/14/18at 08:16; Start 09/16/17 at 09:00 Glimepiride (Amaryl) 8 mg DAILYWBKFT PO Last administered on 09/23/17 08:17; Start 09/16/17 at 08:00 Metformin HCl (Glucophage) 1,000 mg BIDWMEALS PO Last administered on 09/16/17 09:38; Start 09/16/17 at 08:00; Stop 09/16/17 at 12:37; Status DC Metformin HCl (Glucophage Xr) 1,000 mg BIDWMEALS PO Last administered on 16:41; Start 09/17/17 at 08:00 Vitamin D (Vitamin D3) 50,000 unit WEEKLY PO Last administered on 09/17/17at 09: 31; Start 09/17/17 at 09:00 Quetiapine Fumarate (SEROquel) 25 mg HS PO Last administered on 09/23/17at 19:23 ; Start 09/16/17 at 21:00 Trazodone HCl (Desyrel) 50 mg PRN QHS PRN PO INSOMNIA, MAY REPEAT X1; Start 09/18/17 at 18:45 Sertraline HCl (Zoloft) 25 mg QHS PO Last administered on 09/21/17at 20:30; Start 09/18/17 at 21:00; Stop 09/21/17 at 23:50; Status DC Quetiapine Fumarate (SEROquel) 12.5 mg 0900,1300 PO Last administered on at 13:46; Start 09/20/17 at 09:00 Sertraline HCl (Zoloft) 50 mg QHS PO Last administered on 09/23/17at 19:23; Start 09/21/17 at 21:00 Quetiapine Fumarate (SEROquel) 25 mg HS PO Last administered on 09/22/17at 20:07 ; Start 09/22/17 at 18:00; Stop 09/22/17 at 21:01; Status DC Active Scripts Active Reported Metoprolol Succinate ( Xl ) (Metoprolol Succinate) 50 Mg Tab.er.24h 50 Mg PO DAILY Metformin Hcl 1,000 Mg Tablet 1,000 Mg PO BIDWMEALS Amlodipine Besylate 10 Mg Tablet 10 Mg PO DAILY Tamsulosin Hcl 0.4 Mg Cap.er.24h 0.4 Mg PO DAILY Glimepiride 4 Mg Tablet 8 Mg PO DAILY Donepezil Hcl 10 Mg Tablet 10 Mg PO DAILY I have reviewed the current psychotropics carefully including drug interactions. Risk benefit ratio favors no change other than as noted in my dictated progress note. Diagnosis: Problems: (1) Anxiety disorder (2) Impulse control disorder (3) Dementia, vascular, with depression (4) Dementia, vascular, with delusions (5) Dementia in Alzheimer's disease with depression (6) Dementia in Alzheimer's disease with delusions JAJA SIERRA MD September 23, 2017 20:46
--- NOTE | 2017-09-24 04:51 | PN ---
DATE: 09/22/2017 This is a late entry for 09/22/2017 covers elements not covered in my initial note. SUBJECTIVE: I met with the patient in the evening. The patient was in his room all night, confused, compliant with medications, came out of the room towards the afternoon. REVIEW OF SYSTEMS: No CV, , eye, ENT or pulmonary system symptoms on review. Reliability poor. MENTAL STATUS EXAM: Oriented to himself. Insight, judgment, recent and remote memory, attention, concentration, fund of knowledge poor, consistent with his diagnosis mentioned in my initial note. PLAN: Continue current psychotropics mentioned in my initial note. Adjust further as clinically indicated. MAN Caitlin SIERRA MD DR: BENNY/jose alberto JOB#: [id number] / [id number]
[2017-09-24 06:16] VITALS: BP 142/60
[2017-09-24] MEDS: TAMSULOSIN 0.4 MG CAP.ER.24H. PO SCH (08:19)
[2017-09-24] MEDS: CHOLECALCIFEROL (VITAMIN D3) 50,000 UNIT CAPSULE PO SCH (08:19)
[2017-09-24] MEDS: amLODIPine BESYLATE 10 MG TABLET PO SCH (08:20)
[2017-09-24] MEDS: GLIMEPIRIDE 2 MG TABLET PO SCH (08:20)
[2017-09-24] MEDS: METOPROLOL SUCC 24HR ER 50 MG TAB.ER.24H. PO SCH (08:20)
[2017-09-24] MEDS: metFORMIN XR 500 MG TAB.ER.24H PO SCH ×2 (08:21→16:15)
[2017-09-24] MEDS: DONEPEZIL HCL 10 MG TABLET PO SCH (08:21)
[2017-09-24] MEDS: QUEtiapine 25 MG TABLET. PO SCH ×3 (08:21→19:55)
[2017-09-24 16:29] VITALS: BP 114/60
--- NOTE | 2017-09-24 18:06 | PN ---
DATE: 09/23/2017 PSYCHIATRIC PROGRESS NOTE This is a late entry for 09/23/2017, covers elements not covered in my initial note of 09/23/2017. SUBJECTIVE: I met with the patient in the evening. The patient slept 6-1/2 hours previous evening, remains confused, believes one of the other demented female patients on the unit is his . Compliant with medications. REVIEW OF SYSTEMS: No CV, , eye, ENT or pulmonary system symptoms on review. Reliability poor. MENTAL STATUS EXAM: Oriented to himself. Insight, judgment, recent and remote memory, attention, concentration, fund of knowledge poor, consistent with his diagnosis mentioned in my initial note. PLAN: Continue current psychotropics and Zoloft was increased on 09/22/2017. MAN Caitlin SIERRA MD DR: BENNY/jose alberto JOB#: [id number] / [id number]
[2017-09-24] MEDS: SERTRALINE 50 MG TABLET. PO SCH (19:54)
--- NOTE | 2017-09-24 20:14 | PDOC ---
Exam Note: Arik Note: Please also refer to the separate dictated note~for this date of service dictated separately.~Patient seen individually. Discussed the patient with Nursing staff reviewed the chart.~Reviewed interim history and current functioning. Reviewed vital signs,~Labs/ Radiology~and current medications noted below. Continue current treatment with the changes noted in the dictated addendum note Assessment: Vital Signs: Vital Signs Date Time Temp Pulse Resp B/P (MAP) Pulse Ox O2 Delivery O2 Flow Rate FiO2 09/24/17 16:29 96.8 67 18 114/60 (78) 95 09/23/17 05:41 Room Air I&O Intake and Output 09/24/17 07:00 Intake Total 1680 ml Balance 1680 ml Intake Oral 1680 ml Labs: Laboratory Tests Test 09/24/17 07:52 Glucose (Fingerstick) 130 mg/dL (70-99) H Current Medications: Meds: Current Medications Olanzapine (ZyPREXA ZYDIS) 2.5 mg PRN Q2HR PRN PO PSYCHOSIS Last administered on 09/24/17at 11:00; Start 09/15/17 at 18:45 Acetaminophen (Tylenol) 650 mg PRN Q6HRS PRN PO PAIN / TEMP; Start 09/15/17 at 19:30 Multi-Ingredient Ointment (Analgesic [place]) 1 rosalino PRN QID PRN TP MUSCLE PAIN; Start 09/15/17 at 19:30 Al Hydroxide/Mg Hydroxide (Mylanta Plus Xs) 15 ml PRN AFTMEALHC PRN PO DYSPEPSIA; Start 09/15/17 at 19:30 Magnesium Hydroxide (Milk Of Magnesia) 2,400 mg PRN QHS PRN PO CONSTIPATION; Start 09/15/17 at 19:30 Donepezil HCl (Aricept) 10 mg DAILY PO Last administered on 09/24/17at 08:21; Start 09/16/17 at 09:00 Amlodipine Besylate (Norvasc) 10 mg DAILY PO Last administered on 09/24/17 08: 20; Start 09/16/17 at 09:00 Metoprolol Succinate (Toprol Xl) 50 mg DAILY PO Last administered on 09/24/17 08:20; Start 09/16/17 at 09:00 Tamsulosin HCl (Flomax) 0.4 mg DAILY PO Last administered on 5/15/18at 08:19; Start 09/16/17 at 09:00 Glimepiride (Amaryl) 8 mg DAILYWBKFT PO Last administered on 09/24/17at 08:20; Start 09/16/17 at 08:00 Metformin HCl (Glucophage) 1,000 mg BIDWMEALS PO Last administered on 09/16/17at 09:38; Start 09/16/17 at 08:00; Stop 09/16/17 at 12:37; Status DC Metformin HCl (Glucophage Xr) 1,000 mg BIDWMEALS PO Last administered on 16:15; Start 09/17/17 at 08:00 Vitamin D (Vitamin D3) 50,000 unit WEEKLY PO Last administered on 09/24/17 08: 19; Start 09/17/17 at 09:00 Quetiapine Fumarate (SEROquel) 25 mg HS PO Last administered on 09/24/17at 19:55 ; Start 09/16/17 at 21:00 Trazodone HCl (Desyrel) 50 mg PRN QHS PRN PO INSOMNIA, MAY REPEAT X1; Start 09/18/17 at 18:45 Sertraline HCl (Zoloft) 25 mg QHS PO Last administered on 09/21/17at 20:30; Start 09/18/17 at 21:00; Stop 09/21/17 at 23:50; Status DC Quetiapine Fumarate (SEROquel) 12.5 mg 0900,1300 PO Last administered on at 13:10; Start 09/20/17 at 09:00 Sertraline HCl (Zoloft) 50 mg QHS PO Last administered on 09/24/17at 19:54; Start 09/21/17 at 21:00 Quetiapine Fumarate (SEROquel) 25 mg HS PO Last administered on 09/22/17at 20:07 ; Start 09/22/17 at 18:00; Stop 09/22/17 at 21:01; Status DC Active Scripts Active Reported Metoprolol Succinate ( Xl ) (Metoprolol Succinate) 50 Mg Tab.er.24h 50 Mg PO DAILY Metformin Hcl 1,000 Mg Tablet 1,000 Mg PO BIDWMEALS Amlodipine Besylate 10 Mg Tablet 10 Mg PO DAILY Tamsulosin Hcl 0.4 Mg Cap.er.24h 0.4 Mg PO DAILY Glimepiride 4 Mg Tablet 8 Mg PO DAILY Donepezil Hcl 10 Mg Tablet 10 Mg PO DAILY I have reviewed the current psychotropics carefully including drug interactions. Risk benefit ratio favors no change other than as noted in my dictated progress note. Diagnosis: Problems: (1) Anxiety disorder (2) Impulse control disorder (3) Dementia, vascular, with depression (4) Dementia, vascular, with delusions (5) Dementia in Alzheimer's disease with depression (6) Dementia in Alzheimer's disease with delusions JAJA SIERRA MD September 24, 2017 20:14
[2017-09-25 05:56] VITALS: BP 167/76
[2017-09-25] MEDS: amLODIPine BESYLATE 10 MG TABLET PO SCH (08:14)
[2017-09-25] MEDS: TAMSULOSIN 0.4 MG CAP.ER.24H. PO SCH (08:14)
[2017-09-25] MEDS: DONEPEZIL HCL 10 MG TABLET PO SCH (08:14)
[2017-09-25] MEDS: METOPROLOL SUCC 24HR ER 50 MG TAB.ER.24H. PO SCH (08:14)
[2017-09-25] MEDS: metFORMIN XR 500 MG TAB.ER.24H PO SCH ×2 (08:14→17:01)
[2017-09-25] MEDS: GLIMEPIRIDE 2 MG TABLET PO SCH (08:14)
[2017-09-25] MEDS: QUEtiapine 25 MG TABLET. PO SCH ×3 (08:15→19:50)
[2017-09-25 18:12] VITALS: BP 161/76
[2017-09-25] MEDS: SERTRALINE 50 MG TABLET. PO SCH (19:50)
--- NOTE | 2017-09-25 22:05 | PDOC ---
Exam Note: Arik Note: Please also refer to the separate dictated note~for this date of service dictated separately.~Patient seen individually. Discussed the patient with Nursing staff reviewed the chart.~Reviewed interim history and current functioning. Reviewed vital signs,~Labs/ Radiology~and current medications noted below. Continue current treatment with the changes noted in the dictated addendum note Assessment: Vital Signs: Vital Signs Date Time Temp Pulse Resp B/P (MAP) Pulse Ox O2 Delivery O2 Flow Rate FiO2 09/25/17 18:12 97.0 62 18 161/76 (104) 97 09/23/17 05:41 Room Air I&O Intake and Output 09/25/17 07:00 Intake Total 1440 ml Balance 1440 ml Intake Oral 1440 ml Labs: Laboratory Tests Test 09/25/17 07:50 Glucose (Fingerstick) 144 mg/dL (70-99) H Current Medications: Meds: Current Medications Olanzapine (ZyPREXA ZYDIS) 2.5 mg PRN Q2HR PRN PO PSYCHOSIS Last administered on 09/24/17at 11:00; Start 09/15/17 at 18:45 Acetaminophen (Tylenol) 650 mg PRN Q6HRS PRN PO PAIN / TEMP; Start 09/15/17 at 19:30 Multi-Ingredient Ointment (Analgesic [place]) 1 rosalino PRN QID PRN TP MUSCLE PAIN; Start 09/15/17 at 19:30 Al Hydroxide/Mg Hydroxide (Mylanta Plus Xs) 15 ml PRN AFTMEALHC PRN PO DYSPEPSIA; Start 09/15/17 at 19:30 Magnesium Hydroxide (Milk Of Magnesia) 2,400 mg PRN QHS PRN PO CONSTIPATION; Start 09/15/17 at 19:30 Donepezil HCl (Aricept) 10 mg DAILY PO Last administered on 09/25/17at 08:14; Start 09/16/17 at 09:00 Amlodipine Besylate (Norvasc) 10 mg DAILY PO Last administered on 09/25/17at 08: 14; Start 09/16/17 at 09:00 Metoprolol Succinate (Toprol Xl) 50 mg DAILY PO Last administered on 09/25/17 08:14; Start 09/16/17 at 09:00 Tamsulosin HCl (Flomax) 0.4 mg DAILY PO Last administered on 09/25/17at 08:14; Start 09/16/17 at 09:00 Glimepiride (Amaryl) 8 mg DAILYWBKFT PO Last administered on 09/25/17at 08:14; Start 09/16/17 at 08:00 Metformin HCl (Glucophage) 1,000 mg BIDWMEALS PO Last administered on 09/16/17at 09:38; Start 09/16/17 at 08:00; Stop 09/16/17 at 12:37; Status DC Metformin HCl (Glucophage Xr) 1,000 mg BIDWMEALS PO Last administered on at 17:01; Start 09/17/17 at 08:00 Vitamin D (Vitamin D3) 50,000 unit WEEKLY PO Last administered on 09/24/17at 08: 19; Start 09/17/17 at 09:00 Quetiapine Fumarate (SEROquel) 25 mg HS PO Last administered on 09/25/17at 19:50 ; Start 09/16/17 at 21:00 Trazodone HCl (Desyrel) 50 mg PRN QHS PRN PO INSOMNIA, MAY REPEAT X1; Start 09/18/17 at 18:45 Sertraline HCl (Zoloft) 25 mg QHS PO Last administered on 09/21/17at 20:30; Start 09/18/17 at 21:00; Stop 09/21/17 at 23:50; Status DC Quetiapine Fumarate (SEROquel) 12.5 mg 0900,1300 PO Last administered on at 13:22; Start 09/20/17 at 09:00 Sertraline HCl (Zoloft) 50 mg QHS PO Last administered on 09/25/17at 19:50; Start 09/21/17 at 21:00 Quetiapine Fumarate (SEROquel) 25 mg HS PO Last administered on 09/22/17at 20:07 ; Start 09/22/17 at 18:00; Stop 09/22/17 at 21:01; Status DC Active Scripts Active Reported Metoprolol Succinate ( Xl ) (Metoprolol Succinate) 50 Mg Tab.er.24h 50 Mg PO DAILY Metformin Hcl 1,000 Mg Tablet 1,000 Mg PO BIDWMEALS Amlodipine Besylate 10 Mg Tablet 10 Mg PO DAILY Tamsulosin Hcl 0.4 Mg Cap.er.24h 0.4 Mg PO DAILY Glimepiride 4 Mg Tablet 8 Mg PO DAILY Donepezil Hcl 10 Mg Tablet 10 Mg PO DAILY I have reviewed the current psychotropics carefully including drug interactions. Risk benefit ratio favors no change other than as noted in my dictated progress note. Diagnosis: Problems: (1) Anxiety disorder (2) Impulse control disorder (3) Dementia, vascular, with depression (4) Dementia, vascular, with delusions (5) Dementia in Alzheimer's disease with depression (6) Dementia in Alzheimer's disease with delusions JAJA SIERRA MD September 25, 2017 22:05
--- NOTE | 2017-09-26 00:59 | PN ---
DATE: 09/24/2017 This late entry 09/24/2017 covers elements not covered in my initial note 09/24/2017. I met with the patient in the evening. The patient slept 8 hours, remains quite confused, oriented to himself, somewhat suspicious, dysphoric, intrusive, believes another demented patient as his . REVIEW OF SYSTEMS: No CV, , pulmonary, eye, ENT system symptoms on review. Reliability poor. MENTAL STATUS EXAM: Oriented to himself. Insight, judgment, recent and remote memory, attention, concentration, fund of knowledge poor, consistent with his diagnosis mentioned in my initial note. PLAN: Continue psychotropics mentioned in my initial note, may need to increase Zoloft gradually. MAN Caitlin SIERRA MD DR: BENNY/jose alberto JOB#: [id number] / [id number]
[2017-09-26 05:54] VITALS: BP 116/74
[2017-09-26] MEDS: metFORMIN XR 500 MG TAB.ER.24H PO SCH ×2 (08:04→16:45)
[2017-09-26] MEDS: DONEPEZIL HCL 10 MG TABLET PO SCH (08:04)
[2017-09-26] MEDS: amLODIPine BESYLATE 10 MG TABLET PO SCH (08:05)
[2017-09-26] MEDS: GLIMEPIRIDE 2 MG TABLET PO SCH (08:05)
[2017-09-26] MEDS: METOPROLOL SUCC 24HR ER 50 MG TAB.ER.24H. PO SCH (08:05)
[2017-09-26] MEDS: QUEtiapine 25 MG TABLET. PO SCH ×3 (08:06→20:44)
[2017-09-26] MEDS: TAMSULOSIN 0.4 MG CAP.ER.24H. PO SCH (08:06)
[2017-09-26 16:33] VITALS: BP 126/55
--- NOTE | 2017-09-26 20:11 | PDOC ---
Exam Note: Arik Note: Please also refer to the separate dictated note~for this date of service dictated separately.~Patient seen individually. Discussed the patient with Nursing staff reviewed the chart.~Reviewed interim history and current functioning. Reviewed vital signs,~Labs/ Radiology~and current medications noted below. Continue current treatment with the changes noted in the dictated addendum note Assessment: Vital Signs: Vital Signs Date Time Temp Pulse Resp B/P (MAP) Pulse Ox O2 Delivery O2 Flow Rate FiO2 09/26/17 16:33 97.9 72 22 126/55 (78) 100 Room Air I&O Intake and Output 09/26/17 07:00 Intake Total 960 ml Balance 960 ml Intake Oral 960 ml Labs: Laboratory Tests Test 09/26/17 07:20 09/26/17 12:00 Glucose (Fingerstick) 144 mg/dL (70-99) H 183 mg/dL (70-99) H Current Medications: Meds: Current Medications Olanzapine (ZyPREXA ZYDIS) 2.5 mg PRN Q2HR PRN PO PSYCHOSIS Last administered on 09/24/17at 11:00; Start 09/15/17 at 18:45 Acetaminophen (Tylenol) 650 mg PRN Q6HRS PRN PO PAIN / TEMP; Start 09/15/17 at 19:30 Multi-Ingredient Ointment (Analgesic [place]) 1 rosalino PRN QID PRN TP MUSCLE PAIN; Start 09/15/17 at 19:30 Al Hydroxide/Mg Hydroxide (Mylanta Plus Xs) 15 ml PRN AFTMEALHC PRN PO DYSPEPSIA; Start 09/15/17 at 19:30 Magnesium Hydroxide (Milk Of Magnesia) 2,400 mg PRN QHS PRN PO CONSTIPATION; Start 09/15/17 at 19:30 Donepezil HCl (Aricept) 10 mg DAILY PO Last administered on 09/26/17at 08:04; Start 09/16/17 at 09:00 Amlodipine Besylate (Norvasc) 10 mg DAILY PO Last administered on 09/26/17at 08: 05; Start 09/16/17 at 09:00 Metoprolol Succinate (Toprol Xl) 50 mg DAILY PO Last administered on 09/26/17at 08:05; Start 09/16/17 at 09:00 Tamsulosin HCl (Flomax) 0.4 mg DAILY PO Last administered on 09/26/17 08:06; Start 09/16/17 at 09:00 Glimepiride (Amaryl) 8 mg DAILYWBKFT PO Last administered on 09/26/17at 08:05; Start 09/16/17 at 08:00 Metformin HCl (Glucophage) 1,000 mg BIDWMEALS PO Last administered on 09/16/17 09:38; Start 09/16/17 at 08:00; Stop 09/16/17 at 12:37; Status DC Metformin HCl (Glucophage Xr) 1,000 mg BIDWMEALS PO Last administered on 16:45; Start 09/17/17 at 08:00 Vitamin D (Vitamin D3) 50,000 unit WEEKLY PO Last administered on 09/24/17 08: 19; Start 09/17/17 at 09:00 Quetiapine Fumarate (SEROquel) 25 mg HS PO Last administered on 09/25/17 19:50 ; Start 09/16/17 at 21:00 Trazodone HCl (Desyrel) 50 mg PRN QHS PRN PO INSOMNIA, MAY REPEAT X1; Start 09/18/17 at 18:45 Sertraline HCl (Zoloft) 25 mg QHS PO Last administered on 09/21/17at 20:30; Start 09/18/17 at 21:00; Stop 09/21/17 at 23:50; Status DC Quetiapine Fumarate (SEROquel) 12.5 mg 0900,1300 PO Last administered on at 13:00; Start 09/20/17 at 09:00 Sertraline HCl (Zoloft) 50 mg QHS PO Last administered on 09/25/17 19:50; Start 09/21/17 at 21:00 Quetiapine Fumarate (SEROquel) 25 mg HS PO Last administered on 09/22/17at 20:07 ; Start 09/22/17 at 18:00; Stop 09/22/17 at 21:01; Status DC Active Scripts Active Reported Metoprolol Succinate ( Xl ) (Metoprolol Succinate) 50 Mg Tab.er.24h 50 Mg PO DAILY Metformin Hcl 1,000 Mg Tablet 1,000 Mg PO BIDWMEALS Amlodipine Besylate 10 Mg Tablet 10 Mg PO DAILY Tamsulosin Hcl 0.4 Mg Cap.er.24h 0.4 Mg PO DAILY Glimepiride 4 Mg Tablet 8 Mg PO DAILY Donepezil Hcl 10 Mg Tablet 10 Mg PO DAILY I have reviewed the current psychotropics carefully including drug interactions. Risk benefit ratio favors no change other than as noted in my dictated progress note. Diagnosis: Problems: (1) Anxiety disorder (2) Impulse control disorder (3) Dementia, vascular, with depression (4) Dementia, vascular, with delusions (5) Dementia in Alzheimer's disease with depression (6) Dementia in Alzheimer's disease with delusions JAJA SIERRA MD September 26, 2017 20:11
[2017-09-26] MEDS: SERTRALINE 50 MG TABLET. PO SCH (20:44)
[2017-09-27 05:35] VITALS: BP 159/66
[2017-09-27] MEDS: amLODIPine BESYLATE 10 MG TABLET PO SCH (08:14)
[2017-09-27] MEDS: DONEPEZIL HCL 10 MG TABLET PO SCH (08:14)
[2017-09-27] MEDS: QUEtiapine 25 MG TABLET. PO SCH ×3 (08:14→20:29)
[2017-09-27] MEDS: TAMSULOSIN 0.4 MG CAP.ER.24H. PO SCH (08:14)
[2017-09-27] MEDS: METOPROLOL SUCC 24HR ER 50 MG TAB.ER.24H. PO SCH (08:15)
[2017-09-27] MEDS: GLIMEPIRIDE 2 MG TABLET PO SCH (08:15)
[2017-09-27] MEDS: metFORMIN XR 500 MG TAB.ER.24H PO SCH ×2 (08:15→17:24)
[2017-09-27 09:53] LABS: BASO % 0 % (0-3); EOS # 0.2 x10^3/uL (0.0-0.7); EOS % 2 % (0-3); HEMATOCRIT 42.2 % (39.0-53.0); HEMOGLOBIN 14.4 g/dL (13.0-17.5); LYMPH # 2.9 x10^3/uL (1.0-4.8); LYMPH % 31 % (24-48); MEAN CORPUSCULAR HEMOGLOBIN 30 pg (25-35); MEAN CORPUSCULAR HGB CONC 34 g/dL (31-37); MEAN CORPUSCULAR VOLUME 89 fL (79-100); MONO # 0.8 x10^3/uL (0.0-1.1); MONO % 9 % (0-9); NEUT # 5.4 x10^3uL (1.8-7.7); NEUT % 58 % (31-73); PLATELET COUNT 303 x10^3/uL (140-400); RED BLOOD COUNT 4.76 x10^6/uL (4.30-5.70); RED CELL DISTRIBUTION WIDTH 13.2 % (11.5-14.5); WHITE BLOOD COUNT 9.3 x10^3/uL (4.0-11.0)
[2017-09-27 10:07] LABS: ALBUMIN 3.2 g/dL (3.4-5.0); ALBUMIN/GLOBULIN RATIO 0.9 (1.0-1.7); CALCIUM 8.9 mg/dL (8.5-10.1); CREATININE 1.1 mg/dL (0.7-1.3); GFR 63.6; POTASSIUM 4.3 mmol/L (3.5-5.1); TOTAL BILIRUBIN 0.6 mg/dL (0.2-1.0); TOTAL PROTEIN 6.6 g/dL (6.4-8.2)
[2017-09-27 16:15] VITALS: BP 127/58
[2017-09-27] MEDS: SERTRALINE 50 MG TABLET. PO SCH (20:29)
--- NOTE | 2017-09-28 02:02 | PN ---
DATE: 09/25/2017 PSYCHIATRIC PROGRESS NOTE This is a late entry for 09/25/2017, covers elements not covered in my initial note of 09/25/2017. SUBJECTIVE: The patient was staffed at a treatment team meeting in the afternoon, seen individually in the evening. He has been quite withdrawn, confused. Minimal participation, slept 6-1/2 hours. Appetite 80%. The day before he was quite agitated, had to be placed in the isolation hallway. REVIEW OF SYSTEMS: No CV, , pulmonary, eye, ENT system symptoms on review. Reliability poor. MENTAL STATUS EXAM: Oriented to himself. Insight, judgment, recent and remote memory, attention, concentration, fund of knowledge poor, consistent with his diagnosis mentioned in my initial note. PLAN: Continue current psychotropics. Adjust further as clinically indicated. MAN Caitlin SIERRA MD DR: BENNY/jose alberto JOB#: [id number] / [id number]
--- NOTE | 2017-09-28 02:03 | PN ---
DATE: 09/26/2017 PSYCHIATRIC PROGRESS NOTE This is a late entry for 09/26/2017, covers elements not covered in my initial note of 09/26/2017. SUBJECTIVE: I met with the patient in the evening. The patient slept 6-3/4 hours. He has been wandering, quite confused, withdrawn to his room, not aggressive. REVIEW OF SYSTEMS: No CV, , pulmonary, eye system symptoms on review. Reliability poor. MENTAL STATUS EXAM: Oriented to himself. Insight, judgment, recent and remote memory, attention, concentration, fund of knowledge poor, consistent with his diagnosis. He was more verbal, open, less paranoid as I met with him. IMPRESSION: Unchanged from initial note. PLAN: Continue current psychotropics, may need to increase Seroquel gradually. MAN Caitlin SIERRA MD DR: BENNY/jose alberto JOB#: [id number] / [id number]
[2017-09-28 06:04] VITALS: BP 136/76
[2017-09-28] MEDS: metFORMIN XR 500 MG TAB.ER.24H PO SCH ×2 (08:43→17:12)
[2017-09-28] MEDS: DONEPEZIL HCL 10 MG TABLET PO SCH (08:43)
[2017-09-28] MEDS: TAMSULOSIN 0.4 MG CAP.ER.24H. PO SCH (08:43)
[2017-09-28] MEDS: GLIMEPIRIDE 2 MG TABLET PO SCH (08:43)
[2017-09-28] MEDS: QUEtiapine 25 MG TABLET. PO SCH ×3 (08:44→20:16)
[2017-09-28] MEDS: amLODIPine BESYLATE 10 MG TABLET PO SCH (08:44)
[2017-09-28] MEDS: METOPROLOL SUCC 24HR ER 50 MG TAB.ER.24H. PO SCH (08:45)
[2017-09-28 16:32] VITALS: BP 133/67
[2017-09-28] MEDS: SERTRALINE 50 MG TABLET. PO SCH (20:15)
--- NOTE | 2017-09-28 22:37 | PDOC ---
Exam Note: Arik Note: Late entry for date of service September 27, 2017. Please also refer to the separate dictated note~for this date of service dictated separately.~Patient seen individually. Discussed the patient with Nursing staff reviewed the chart.~ Reviewed interim history and current functioning. Reviewed vital signs,~Labs/ Radiology~and current medications noted below. Continue current treatment with the changes noted in the dictated addendum note Assessment: Vital Signs: VS - Last 72 Hours, by Label Date Time Temp Pulse Resp B/P (MAP) Pulse Ox O2 Delivery O2 Flow Rate FiO2 09/28/17 16:32 97.1 61 18 133/67 (89) 95 09/28/17 08:45 65 136/76 09/28/17 08:44 65 136/76 09/28/17 06:04 98.0 65 18 136/76 (96) 96 09/27/17 16:15 97.2 84 20 127/58 (81) 95 09/27/17 08:15 62 159/66 09/27/17 08:14 62 159/66 09/27/17 05:35 97.4 62 20 159/66 (97) 95 Room Air 09/26/17 16:33 97.9 72 22 126/55 (78) 100 Room Air 09/26/17 08:05 69 116/74 09/26/17 08:05 69 116/74 09/26/17 05:54 97.7 69 20 116/74 (88) 96 Vital Signs Date Time Temp Pulse Resp B/P (MAP) Pulse Ox O2 Delivery O2 Flow Rate FiO2 09/28/17 16:32 97.1 61 18 133/67 (89) 95 09/27/17 05:35 Room Air I&O Intake and Output 09/28/17 07:00 Intake Total 960 ml Balance 960 ml Intake Oral 960 ml # Bowel Movements 1 Labs: Laboratory Tests Test 09/28/17 08:22 Glucose (Fingerstick) 165 mg/dL (70-99) H Current Medications: Meds: Current Medications Olanzapine (ZyPREXA ZYDIS) 2.5 mg PRN Q2HR PRN PO PSYCHOSIS Last administered on 09/24/17at 11:00; Start 09/15/17 at 18:45 Acetaminophen (Tylenol) 650 mg PRN Q6HRS PRN PO PAIN / TEMP; Start 09/15/17 at 19:30 Multi-Ingredient Ointment (Analgesic [place]) 1 rosalino PRN QID PRN TP MUSCLE PAIN; Start 09/15/17 at 19:30 Al Hydroxide/Mg Hydroxide (Mylanta Plus Xs) 15 ml PRN AFTMEALHC PRN PO DYSPEPSIA; Start 09/15/17 at 19:30 Magnesium Hydroxide (Milk Of Magnesia) 2,400 mg PRN QHS PRN PO CONSTIPATION; Start 09/15/17 at 19:30 Donepezil HCl (Aricept) 10 mg DAILY PO Last administered on 09/28/17at 08:43; Start 09/16/17 at 09:00 Amlodipine Besylate (Norvasc) 10 mg DAILY PO Last administered on 09/28/17at 08: 44; Start 09/16/17 at 09:00 Metoprolol Succinate (Toprol Xl) 50 mg DAILY PO Last administered on 09/28/17at 08:45; Start 09/16/17 at 09:00 Tamsulosin HCl (Flomax) 0.4 mg DAILY PO Last administered on 09/28/17at 08:43; Start 09/16/17 at 09:00 Glimepiride (Amaryl) 8 mg DAILYWBKFT PO Last administered on 09/28/17at 08:43; Start 09/16/17 at 08:00 Metformin HCl (Glucophage) 1,000 mg BIDWMEALS PO Last administered on 09/16/17at 09:38; Start 09/16/17 at 08:00; Stop 09/16/17 at 12:37; Status DC Metformin HCl (Glucophage Xr) 1,000 mg BIDWMEALS PO Last administered on at 17:12; Start 09/17/17 at 08:00 Vitamin D (Vitamin D3) 50,000 unit WEEKLY PO Last administered on 09/24/17at 08: 19; Start 09/17/17 at 09:00 Quetiapine Fumarate (SEROquel) 25 mg HS PO Last administered on 09/28/17at 20:16 ; Start 09/16/17 at 21:00 Trazodone HCl (Desyrel) 50 mg PRN QHS PRN PO INSOMNIA, MAY REPEAT X1; Start 09/18/17 at 18:45 Sertraline HCl (Zoloft) 25 mg QHS PO Last administered on 09/21/17at 20:30; Start 09/18/17 at 21:00; Stop 09/21/17 at 23:50; Status DC Quetiapine Fumarate (SEROquel) 12.5 mg 0900,1300 PO Last administered on at 13:53; Start 09/20/17 at 09:00 Sertraline HCl (Zoloft) 50 mg QHS PO Last administered on 09/28/17at 20:15; Start 09/21/17 at 21:00 Quetiapine Fumarate (SEROquel) 25 mg HS PO Last administered on 09/22/17at 20:07 ; Start 09/22/17 at 18:00; Stop 09/22/17 at 21:01; Status DC Active Scripts Active Reported Metoprolol Succinate ( Xl ) (Metoprolol Succinate) 50 Mg Tab.er.24h 50 Mg PO DAILY Metformin Hcl 1,000 Mg Tablet 1,000 Mg PO BIDWMEALS Amlodipine Besylate 10 Mg Tablet 10 Mg PO DAILY Tamsulosin Hcl 0.4 Mg Cap.er.24h 0.4 Mg PO DAILY Glimepiride 4 Mg Tablet 8 Mg PO DAILY Donepezil Hcl 10 Mg Tablet 10 Mg PO DAILY I have reviewed the current psychotropics carefully including drug interactions. Risk benefit ratio favors no change other than as noted in my dictated progress note. Diagnosis: Problems: (1) Anxiety disorder (2) Impulse control disorder (3) Dementia, vascular, with depression (4) Dementia, vascular, with delusions (5) Dementia in Alzheimer's disease with depression (6) Dementia in Alzheimer's disease with delusions JAJA SIERRA MD September 28, 2017 22:37
--- NOTE | 2017-09-28 23:10 | PDOC ---
Exam Note: Arik Note: Please also refer to the separate dictated note~for this date of service dictated separately.~Patient seen individually. Discussed the patient with Nursing staff reviewed the chart.~Reviewed interim history and current functioning. Reviewed vital signs,~Labs/ Radiology~and current medications noted below. Continue current treatment with the changes noted in the dictated addendum note Assessment: Vital Signs: Vital Signs Date Time Temp Pulse Resp B/P (MAP) Pulse Ox O2 Delivery O2 Flow Rate FiO2 09/28/17 16:32 97.1 61 18 133/67 (89) 95 09/27/17 05:35 Room Air I&O Intake and Output 09/28/17 07:00 Intake Total 960 ml Balance 960 ml Intake Oral 960 ml # Bowel Movements 1 Labs: Laboratory Tests Test 09/28/17 08:22 Glucose (Fingerstick) 165 mg/dL (70-99) H Current Medications: Meds: Current Medications Olanzapine (ZyPREXA ZYDIS) 2.5 mg PRN Q2HR PRN PO PSYCHOSIS Last administered on 09/24/17at 11:00; Start 09/15/17 at 18:45 Acetaminophen (Tylenol) 650 mg PRN Q6HRS PRN PO PAIN / TEMP; Start 09/15/17 at 19:30 Multi-Ingredient Ointment (Analgesic [place]) 1 rosalino PRN QID PRN TP MUSCLE PAIN; Start 09/15/17 at 19:30 Al Hydroxide/Mg Hydroxide (Mylanta Plus Xs) 15 ml PRN AFTMEALHC PRN PO DYSPEPSIA; Start 09/15/17 at 19:30 Magnesium Hydroxide (Milk Of Magnesia) 2,400 mg PRN QHS PRN PO CONSTIPATION; Start 09/15/17 at 19:30 Donepezil HCl (Aricept) 10 mg DAILY PO Last administered on 09/28/17at 08:43; Start 09/16/17 at 09:00 Amlodipine Besylate (Norvasc) 10 mg DAILY PO Last administered on 09/28/17at 08: 44; Start 09/16/17 at 09:00 Metoprolol Succinate (Toprol Xl) 50 mg DAILY PO Last administered on 09/28/17at 08:45; Start 09/16/17 at 09:00 Tamsulosin HCl (Flomax) 0.4 mg DAILY PO Last administered on 09/28/17 08:43; Start 09/16/17 at 09:00 Glimepiride (Amaryl) 8 mg DAILYWBKFT PO Last administered on 09/28/17at 08:43; Start 09/16/17 at 08:00 Metformin HCl (Glucophage) 1,000 mg BIDWMEALS PO Last administered on 09/16/17at 09:38; Start 09/16/17 at 08:00; Stop 09/16/17 at 12:37; Status DC Metformin HCl (Glucophage Xr) 1,000 mg BIDWMEALS PO Last administered on 17:12; Start 09/17/17 at 08:00 Vitamin D (Vitamin D3) 50,000 unit WEEKLY PO Last administered on 09/24/17at 08: 19; Start 09/17/17 at 09:00 Quetiapine Fumarate (SEROquel) 25 mg HS PO Last administered on 09/28/17at 20:16 ; Start 09/16/17 at 21:00 Trazodone HCl (Desyrel) 50 mg PRN QHS PRN PO INSOMNIA, MAY REPEAT X1; Start 09/18/17 at 18:45 Sertraline HCl (Zoloft) 25 mg QHS PO Last administered on 09/21/17at 20:30; Start 09/18/17 at 21:00; Stop 09/21/17 at 23:50; Status DC Quetiapine Fumarate (SEROquel) 12.5 mg 0900,1300 PO Last administered on at 13:53; Start 09/20/17 at 09:00 Sertraline HCl (Zoloft) 50 mg QHS PO Last administered on 09/28/17at 20:15; Start 09/21/17 at 21:00 Quetiapine Fumarate (SEROquel) 25 mg HS PO Last administered on 09/22/17at 20:07 ; Start 09/22/17 at 18:00; Stop 09/22/17 at 21:01; Status DC Active Scripts Active Reported Metoprolol Succinate ( Xl ) (Metoprolol Succinate) 50 Mg Tab.er.24h 50 Mg PO DAILY Metformin Hcl 1,000 Mg Tablet 1,000 Mg PO BIDWMEALS Amlodipine Besylate 10 Mg Tablet 10 Mg PO DAILY Tamsulosin Hcl 0.4 Mg Cap.er.24h 0.4 Mg PO DAILY Glimepiride 4 Mg Tablet 8 Mg PO DAILY Donepezil Hcl 10 Mg Tablet 10 Mg PO DAILY I have reviewed the current psychotropics carefully including drug interactions. Risk benefit ratio favors no change other than as noted in my dictated progress note. Diagnosis: Problems: (1) Anxiety disorder (2) Impulse control disorder (3) Dementia, vascular, with depression (4) Dementia, vascular, with delusions (5) Dementia in Alzheimer's disease with depression (6) Dementia in Alzheimer's disease with delusions JAJA SIERRA MD September 28, 2017 23:09
[2017-09-29 05:56] VITALS: BP 123/64
[2017-09-29] MEDS: metFORMIN XR 500 MG TAB.ER.24H PO SCH ×2 (08:45→17:11)
[2017-09-29] MEDS: TAMSULOSIN 0.4 MG CAP.ER.24H. PO SCH (08:45)
[2017-09-29] MEDS: GLIMEPIRIDE 2 MG TABLET PO SCH (08:45)
[2017-09-29] MEDS: DONEPEZIL HCL 10 MG TABLET PO SCH (08:45)
[2017-09-29] MEDS: amLODIPine BESYLATE 10 MG TABLET PO SCH (08:46)
[2017-09-29] MEDS: QUEtiapine 25 MG TABLET. PO SCH ×3 (08:46→20:18)
[2017-09-29] MEDS: METOPROLOL SUCC 24HR ER 50 MG TAB.ER.24H. PO SCH (09:00)
[2017-09-29] MEDS: SERTRALINE 50 MG TABLET. PO SCH (20:18)
--- NOTE | 2017-09-29 20:43 | PDOC ---
Exam Note: Arik Note: Please also refer to the separate dictated note~for this date of service dictated separately.~Patient seen individually. Discussed the patient with Nursing staff reviewed the chart.~Reviewed interim history and current functioning. Reviewed vital signs,~Labs/ Radiology~and current medications noted below. Continue current treatment with the changes noted in the dictated addendum note Assessment: Vital Signs: Vital Signs Date Time Temp Pulse Resp B/P (MAP) Pulse Ox O2 Delivery O2 Flow Rate FiO2 09/29/17 15:37 97.6 71 16 96 09/29/17 08:46 123/64 09/27/17 05:35 Room Air I&O Intake and Output 09/29/17 07:00 Intake Total 1080 ml Balance 1080 ml Intake Oral 1080 ml Labs: Laboratory Tests Test 09/29/17 07:19 Glucose (Fingerstick) 160 mg/dL (70-99) H Current Medications: Meds: Current Medications Olanzapine (ZyPREXA ZYDIS) 2.5 mg PRN Q2HR PRN PO PSYCHOSIS Last administered on 09/24/17at 11:00; Start 09/15/17 at 18:45 Acetaminophen (Tylenol) 650 mg PRN Q6HRS PRN PO PAIN / TEMP; Start 09/15/17 at 19:30 Multi-Ingredient Ointment (Analgesic [place]) 1 rosalino PRN QID PRN TP MUSCLE PAIN; Start 09/15/17 at 19:30 Al Hydroxide/Mg Hydroxide (Mylanta Plus Xs) 15 ml PRN AFTMEALHC PRN PO DYSPEPSIA; Start 09/15/17 at 19:30 Magnesium Hydroxide (Milk Of Magnesia) 2,400 mg PRN QHS PRN PO CONSTIPATION; Start 09/15/17 at 19:30 Donepezil HCl (Aricept) 10 mg DAILY PO Last administered on 09/29/17at 08:45; Start 09/16/17 at 09:00 Amlodipine Besylate (Norvasc) 10 mg DAILY PO Last administered on 09/29/17at 08: 46; Start 09/16/17 at 09:00 Metoprolol Succinate (Toprol Xl) 50 mg DAILY PO Last administered on 09/28/17at 08:45; Start 09/16/17 at 09:00 Tamsulosin HCl (Flomax) 0.4 mg DAILY PO Last administered on 5/20/18at 08:45; Start 09/16/17 at 09:00 Glimepiride (Amaryl) 8 mg DAILYWBKFT PO Last administered on 09/29/17at 08:45; Start 09/16/17 at 08:00 Metformin HCl (Glucophage) 1,000 mg BIDWMEALS PO Last administered on 09/16/17at 09:38; Start 09/16/17 at 08:00; Stop 09/16/17 at 12:37; Status DC Metformin HCl (Glucophage Xr) 1,000 mg BIDWMEALS PO Last administered on at 17:11; Start 09/17/17 at 08:00 Vitamin D (Vitamin D3) 50,000 unit WEEKLY PO Last administered on 09/24/17at 08: 19; Start 09/17/17 at 09:00 Quetiapine Fumarate (SEROquel) 25 mg HS PO Last administered on 09/29/17at 20:18 ; Start 09/16/17 at 21:00 Trazodone HCl (Desyrel) 50 mg PRN QHS PRN PO INSOMNIA, MAY REPEAT X1; Start 09/18/17 at 18:45 Sertraline HCl (Zoloft) 25 mg QHS PO Last administered on 09/21/17at 20:30; Start 09/18/17 at 21:00; Stop 09/21/17 at 23:50; Status DC Quetiapine Fumarate (SEROquel) 12.5 mg 0900,1300 PO Last administered on at 13:20; Start 09/20/17 at 09:00 Sertraline HCl (Zoloft) 50 mg QHS PO Last administered on 09/29/17at 20:18; Start 09/21/17 at 21:00 Quetiapine Fumarate (SEROquel) 25 mg HS PO Last administered on 09/22/17at 20:07 ; Start 09/22/17 at 18:00; Stop 09/22/17 at 21:01; Status DC Active Scripts Active Reported Metoprolol Succinate ( Xl ) (Metoprolol Succinate) 50 Mg Tab.er.24h 50 Mg PO DAILY Metformin Hcl 1,000 Mg Tablet 1,000 Mg PO BIDWMEALS Amlodipine Besylate 10 Mg Tablet 10 Mg PO DAILY Tamsulosin Hcl 0.4 Mg Cap.er.24h 0.4 Mg PO DAILY Glimepiride 4 Mg Tablet 8 Mg PO DAILY Donepezil Hcl 10 Mg Tablet 10 Mg PO DAILY I have reviewed the current psychotropics carefully including drug interactions. Risk benefit ratio favors no change other than as noted in my dictated progress note. Diagnosis: Problems: (1) Anxiety disorder (2) Impulse control disorder (3) Dementia, vascular, with depression (4) Dementia, vascular, with delusions (5) Dementia in Alzheimer's disease with depression (6) Dementia in Alzheimer's disease with delusions JAJA SIERRA MD September 29, 2017 20:43
--- NOTE | 2017-09-29 20:53 | PN ---
DATE: 09/27/2017 This is a late entry of 09/27/2017 covers elements not covered in my initial note of 09/27/2017. SUBJECTIVE: The patient remains confused, not aggressive. He is wandering less in the evening. During the day 09/27/2017, he was more intrusive, holding hands with one of the new female patients believing she is his . REVIEW OF SYSTEMS: No CV, , pulmonary, eye, ENT system symptoms on review. Reliability poor. MENTAL STATUS EXAM: Oriented to himself. Insight, judgment, recent and remote memory, attention, concentration, fund of knowledge poor, consistent with his diagnosis mentioned in my initial note. PLAN: Continue current psychotropics. May need to increase Seroquel depending on his progress. MAN Caitlin SIERRA MD DR: BENNY/jose alberto JOB#: [id number] / [id number]
[2017-09-30 06:07] VITALS: BP 169/75
[2017-09-30] MEDS: metFORMIN XR 500 MG TAB.ER.24H PO SCH ×2 (08:21→16:56)
[2017-09-30] MEDS: GLIMEPIRIDE 2 MG TABLET PO SCH (08:21)
[2017-09-30] MEDS: DONEPEZIL HCL 10 MG TABLET PO SCH (08:21)
[2017-09-30] MEDS: amLODIPine BESYLATE 10 MG TABLET PO SCH (08:22)
[2017-09-30] MEDS: QUEtiapine 25 MG TABLET. PO SCH ×3 (08:22→19:55)
[2017-09-30] MEDS: TAMSULOSIN 0.4 MG CAP.ER.24H. PO SCH (08:22)
[2017-09-30] MEDS: METOPROLOL SUCC 24HR ER 50 MG TAB.ER.24H. PO SCH (09:00)
--- NOTE | 2017-09-30 09:48 | PN ---
DATE: 09/28/2017 This is a late entry for 09/28/2017 and covers elements not covered in my initial note of 09/28/2017. I met with the patient the evening of 09/28/2017. The patient has done reasonably well during, the day remains confused. REVIEW OF SYSTEMS: No CV, , pulmonary, eye, ENT system symptoms on review. Reliability poor. MENTAL STATUS EXAM: Oriented to himself. Insight, judgment, recent and remote memory, attention, concentration, fund of knowledge poor, consistent with his diagnosis as mentioned in my initial note. PLAN: Increase Zoloft to 50 mg a day. Maintain Aricept, Seroquel at current dosage. MAN Caitlin SIERRA MD DR: BENNY/jose alberto JOB#: [id number] / [id number]
--- NOTE | 2017-09-30 14:02 | PN ---
DATE: 09/29/2017 PSYCHIATRIC PROGRESS NOTE This note covers elements not covered in my initial note 09/29/2017. SUBJECTIVE: I met with the patient in the evening. The patient slept 7-1/4 hours. He was somewhat agitated in the evening. Blood pressure was somewhat labile. Rest of the days confused, but pleasant, cooperative, compliant with medications. REVIEW OF SYSTEMS: No CV, , pulmonary, eye, ENT system symptoms on review. Reliability poor. MENTAL STATUS EXAM: Oriented to himself. Insight, judgment, recent and remote memory, attention, concentration, fund of knowledge poor, consistent with his diagnoses mentioned in my initial note. IMPRESSION: Major neurocognitive disorder, Alzheimer, vascular with delusion, depression. PLAN: Continue Aricept 10 mg a day, Zyprexa p.r.n., Seroquel 25 mg at bedtime, Zoloft 50 mg a day, Seroquel 12.5 mg b.i.d. and trazodone at bedtime p.r.n. Slept 7-1/4 hours previous night. MAN Caitlin SIERRA MD DR: BENNY/jose alberto JOB#: [id number] / [id number]
[2017-09-30 16:14] VITALS: BP 139/73
[2017-09-30] MEDS: SERTRALINE 50 MG TABLET. PO SCH (19:55)
--- NOTE | 2017-09-30 20:40 | PDOC ---
Exam Note: Arik Note: Please also refer to the separate dictated note~for this date of service dictated separately.~Patient seen individually. Discussed the patient with Nursing staff reviewed the chart.~Reviewed interim history and current functioning. Reviewed vital signs,~Labs/ Radiology~and current medications noted below. Continue current treatment with the changes noted in the dictated addendum note Assessment: Vital Signs: Vital Signs Date Time Temp Pulse Resp B/P (MAP) Pulse Ox O2 Delivery O2 Flow Rate FiO2 09/30/17 16:14 97.6 72 18 139/73 (95) 95 09/27/17 05:35 Room Air I&O Intake and Output 09/30/17 07:00 Intake Total 1080 ml Balance 1080 ml Intake Oral 1080 ml Labs: Laboratory Tests Test 09/30/17 07:22 Glucose (Fingerstick) 123 mg/dL (70-99) H Current Medications: Meds: Current Medications Olanzapine (ZyPREXA ZYDIS) 2.5 mg PRN Q2HR PRN PO PSYCHOSIS Last administered on 09/24/17at 11:00; Start 09/15/17 at 18:45 Acetaminophen (Tylenol) 650 mg PRN Q6HRS PRN PO PAIN / TEMP; Start 09/15/17 at 19:30 Multi-Ingredient Ointment (Analgesic [place]) 1 rosalino PRN QID PRN TP MUSCLE PAIN; Start 09/15/17 at 19:30 Al Hydroxide/Mg Hydroxide (Mylanta Plus Xs) 15 ml PRN AFTMEALHC PRN PO DYSPEPSIA; Start 09/15/17 at 19:30 Magnesium Hydroxide (Milk Of Magnesia) 2,400 mg PRN QHS PRN PO CONSTIPATION; Start 09/15/17 at 19:30 Donepezil HCl (Aricept) 10 mg DAILY PO Last administered on 09/30/17at 08:21; Start 09/16/17 at 09:00 Amlodipine Besylate (Norvasc) 10 mg DAILY PO Last administered on 09/30/17at 08: 22; Start 09/16/17 at 09:00 Metoprolol Succinate (Toprol Xl) 50 mg DAILY PO Last administered on 09/28/17at 08:45; Start 09/16/17 at 09:00 Tamsulosin HCl (Flomax) 0.4 mg DAILY PO Last administered on 09/30/17at 08:22; Start 09/16/17 at 09:00 Glimepiride (Amaryl) 8 mg DAILYWBKFT PO Last administered on 09/30/17at 08:21; Start 09/16/17 at 08:00 Metformin HCl (Glucophage) 1,000 mg BIDWMEALS PO Last administered on 09/16/17at 09:38; Start 09/16/17 at 08:00; Stop 09/16/17 at 12:37; Status DC Metformin HCl (Glucophage Xr) 1,000 mg BIDWMEALS PO Last administered on at 16:56; Start 09/17/17 at 08:00 Vitamin D (Vitamin D3) 50,000 unit WEEKLY PO Last administered on 09/24/17at 08: 19; Start 09/17/17 at 09:00 Quetiapine Fumarate (SEROquel) 25 mg HS PO Last administered on 09/30/17at 19:55 ; Start 09/16/17 at 21:00 Trazodone HCl (Desyrel) 50 mg PRN QHS PRN PO INSOMNIA, MAY REPEAT X1; Start 09/18/17 at 18:45 Sertraline HCl (Zoloft) 25 mg QHS PO Last administered on 09/21/17at 20:30; Start 09/18/17 at 21:00; Stop 09/21/17 at 23:50; Status DC Quetiapine Fumarate (SEROquel) 12.5 mg 0900,1300 PO Last administered on at 13:36; Start 09/20/17 at 09:00 Sertraline HCl (Zoloft) 50 mg QHS PO Last administered on 09/30/17at 19:55; Start 09/21/17 at 21:00 Quetiapine Fumarate (SEROquel) 25 mg HS PO Last administered on 09/22/17at 20:07 ; Start 09/22/17 at 18:00; Stop 09/22/17 at 21:01; Status DC Active Scripts Active Reported Metoprolol Succinate ( Xl ) (Metoprolol Succinate) 50 Mg Tab.er.24h 50 Mg PO DAILY Metformin Hcl 1,000 Mg Tablet 1,000 Mg PO BIDWMEALS Amlodipine Besylate 10 Mg Tablet 10 Mg PO DAILY Tamsulosin Hcl 0.4 Mg Cap.er.24h 0.4 Mg PO DAILY Glimepiride 4 Mg Tablet 8 Mg PO DAILY Donepezil Hcl 10 Mg Tablet 10 Mg PO DAILY I have reviewed the current psychotropics carefully including drug interactions. Risk benefit ratio favors no change other than as noted in my dictated progress note. Diagnosis: Problems: (1) Anxiety disorder (2) Impulse control disorder (3) Dementia, vascular, with depression (4) Dementia, vascular, with delusions (5) Dementia in Alzheimer's disease with depression (6) Dementia in Alzheimer's disease with delusions JAJA SIERRA MD September 30, 2017 20:40
--- NOTE | 2017-10-01 03:03 | PN ---
DATE: 09/30/2017 SUBJECTIVE: The patient was seen today, met with the staff, chart reviewed and also covering for Dr. Parr. The patient apparently not presenting with any major problems, less anxious, feeling restless, wanting to go home. The patient is still confused at times, having difficulty with concentration and thinking. OBSERVATION: VITAL SIGNS: Temperature 97.7, blood pressure 169/75, pulse 63, respirations 20, O2 sat 96% and he slept about 7 hours last night. The patient's appetite is fair. MEDICATIONS: The patient's lab reviewed and all within the normal range except for increased glucose level 123, alkaline phosphatase was 43. CURRENT MEDICATIONS: Include Zoloft 50 mg daily, Seroquel 12.5 mg b.i.d., trazodone 50 mg at night p.r.n. Also on Seroquel 25 mg at night, Aricept 10 mg daily and Zyprexa 2.5 mg q. 2 hours p.r.n. for agitation. The patient is also on metformin, Flomax, Toprol-XL, amlodipine, Amaryl for his medical problems. ASSESSMENT: 1. Major neurocognitive disorder, most likely vascular with delusions, depression. 2. Anxiety disorder, unspecified. 3. Impulse control disorder, unspecified. PLAN: Continue with the treatment. The patient will be encouraged to attend all the activities. Continue to monitor his medications. ZAHRAA COX MD DR: JULIAN/jose alberto JOB#: [id number] / [id number]
[2017-10-01 06:24] VITALS: BP 155/88
[2017-10-01] MEDS: amLODIPine BESYLATE 10 MG TABLET PO SCH (08:05)
[2017-10-01] MEDS: DONEPEZIL HCL 10 MG TABLET PO SCH (08:05)
[2017-10-01] MEDS: metFORMIN XR 500 MG TAB.ER.24H PO SCH ×2 (08:05→17:05)
[2017-10-01] MEDS: GLIMEPIRIDE 2 MG TABLET PO SCH (08:06)
[2017-10-01] MEDS: QUEtiapine 25 MG TABLET. PO SCH ×3 (08:06→19:41)
[2017-10-01] MEDS: TAMSULOSIN 0.4 MG CAP.ER.24H. PO SCH (08:06)
[2017-10-01] MEDS: METOPROLOL SUCC 24HR ER 50 MG TAB.ER.24H. PO SCH (08:06)
[2017-10-01] MEDS: CHOLECALCIFEROL (VITAMIN D3) 50,000 UNIT CAPSULE PO SCH (08:07)
[2017-10-01 16:35] VITALS: BP 133/66
--- NOTE | 2017-10-01 17:16 | EKG ---
[address] [address] Test Date: 2017-09-22 Test Time: 21:00:23 Pat Name: TAVIA CADENA Department: Room: [facility] Gender: Adz Worker: : [id number] Requested By: JAJA SIERRA Order Number: [id number] Reading MD: Junior Raza MD Measurements Intervals [place] Rate: P: NM: QRS: QRSD: T: QT: QTc: Interpretive Statements PROBABLE SINUS RHYTHM WITH PAC'S NSSTT CHANGES Electronically Signed On 10-02-2017 13:41:46 CDT by Junior Raza MD
[2017-10-01] MEDS: SERTRALINE 50 MG TABLET. PO SCH (19:41)
[2017-10-02 06:15] VITALS: BP 144/65
[2017-10-02] MEDS: DONEPEZIL HCL 10 MG TABLET PO SCH (08:03)
[2017-10-02] MEDS: amLODIPine BESYLATE 10 MG TABLET PO SCH (08:03)
[2017-10-02] MEDS: metFORMIN XR 500 MG TAB.ER.24H PO SCH ×2 (08:03→17:16)
[2017-10-02] MEDS: METOPROLOL SUCC 24HR ER 50 MG TAB.ER.24H. PO SCH (08:04)
[2017-10-02] MEDS: TAMSULOSIN 0.4 MG CAP.ER.24H. PO SCH (08:04)
[2017-10-02] MEDS: GLIMEPIRIDE 2 MG TABLET PO SCH (08:04)
[2017-10-02] MEDS: QUEtiapine 25 MG TABLET. PO SCH ×3 (08:04→19:28)
[2017-10-02 16:21] VITALS: BP 126/64
[2017-10-02] MEDS: SERTRALINE 50 MG TABLET. PO SCH (19:28)
--- NOTE | 2017-10-02 19:47 | PDOC ---
Exam Note: Arik Note: Late entry for date of service October 01, 2017. Please also refer to the separate dictated note~for this date of service dictated separately.~Patient seen individually. Discussed the patient with Nursing staff reviewed the chart.~ Reviewed interim history and current functioning. Reviewed vital signs,~Labs/ Radiology~and current medications noted below. Continue current treatment with the changes noted in the dictated addendum note Assessment: Vital Signs: VS - Last 72 Hours, by Label Date Time Temp Pulse Resp B/P (MAP) Pulse Ox O2 Delivery O2 Flow Rate FiO2 10/02/17 16:21 97.3 64 18 126/64 (84) 98 10/02/17 08:04 55 144/65 10/02/17 08:03 55 144/65 10/02/17 06:15 97.4 55 20 144/65 (91) 94 10/01/17 16:35 97.5 66 18 133/66 (88) 93 Room Air 10/01/17 08:06 84 155/88 10/01/17 08:05 84 155/88 10/01/17 06:24 97.2 84 20 155/88 (110) 96 09/30/17 16:14 97.6 72 18 139/73 (95) 95 09/30/17 08:22 63 169/75 09/30/17 06:07 97.7 63 20 169/75 (106) 96 Vital Signs Date Time Temp Pulse Resp B/P (MAP) Pulse Ox O2 Delivery O2 Flow Rate FiO2 10/02/17 16:21 97.3 64 18 126/64 (84) 98 10/01/17 16:35 Room Air I&O Intake and Output 10/02/17 07:00 Intake Total 1200 ml Balance 1200 ml Intake Oral 1200 ml # Bowel Movements 2 Labs: Laboratory Tests Test 10/02/17 07:23 Glucose (Fingerstick) 154 mg/dL (70-99) H Current Medications: Meds: Current Medications Olanzapine (ZyPREXA ZYDIS) 2.5 mg PRN Q2HR PRN PO PSYCHOSIS Last administered on 09/24/17at 11:00; Start 09/15/17 at 18:45 Acetaminophen (Tylenol) 650 mg PRN Q6HRS PRN PO PAIN / TEMP; Start 09/15/17 at 19:30 Multi-Ingredient Ointment (Analgesic [place]) 1 rosalino PRN QID PRN TP MUSCLE PAIN; Start 09/15/17 at 19:30 Al Hydroxide/Mg Hydroxide (Mylanta Plus Xs) 15 ml PRN AFTMEALHC PRN PO DYSPEPSIA; Start 09/15/17 at 19:30 Magnesium Hydroxide (Milk Of Magnesia) 2,400 mg PRN QHS PRN PO CONSTIPATION; Start 09/15/17 at 19:30 Donepezil HCl (Aricept) 10 mg DAILY PO Last administered on 10/02/17 08:03; Start 09/16/17 at 09:00 Amlodipine Besylate (Norvasc) 10 mg DAILY PO Last administered on 10/02/17 08: 03; Start 09/16/17 at 09:00 Metoprolol Succinate (Toprol Xl) 50 mg DAILY PO Last administered on 10/02/17 08:04; Start 09/16/17 at 09:00 Tamsulosin HCl (Flomax) 0.4 mg DAILY PO Last administered on 10/02/17at 08:04; Start 09/16/17 at 09:00 Glimepiride (Amaryl) 8 mg DAILYWBKFT PO Last administered on 10/02/17 08:04; Start 09/16/17 at 08:00 Metformin HCl (Glucophage) 1,000 mg BIDWMEALS PO Last administered on 09/16/17at 09:38; Start 09/16/17 at 08:00; Stop 09/16/17 at 12:37; Status DC Metformin HCl (Glucophage Xr) 1,000 mg BIDWMEALS PO Last administered on 17:16; Start 09/17/17 at 08:00 Vitamin D (Vitamin D3) 50,000 unit WEEKLY PO Last administered on 10/01/17 08: 07; Start 09/17/17 at 09:00 Quetiapine Fumarate (SEROquel) 25 mg HS PO Last administered on 10/02/17 19:28 ; Start 09/16/17 at 21:00 Trazodone HCl (Desyrel) 50 mg PRN QHS PRN PO INSOMNIA, MAY REPEAT X1; Start 09/18/17 at 18:45 Sertraline HCl (Zoloft) 25 mg QHS PO Last administered on 09/21/17at 20:30; Start 09/18/17 at 21:00; Stop 09/21/17 at 23:50; Status DC Quetiapine Fumarate (SEROquel) 12.5 mg 0900,1300 PO Last administered on at 13:22; Start 09/20/17 at 09:00; Stop 10/02/17 at 18:43; Status DC Sertraline HCl (Zoloft) 50 mg QHS PO Last administered on 09/30/17at 19:55; Start 09/21/17 at 21:00; Stop 10/01/17 at 18:41; Status DC Quetiapine Fumarate (SEROquel) 25 mg HS PO Last administered on 09/22/17at 20:07 ; Start 09/22/17 at 18:00; Stop 09/22/17 at 21:01; Status DC Sertraline HCl (Zoloft) 75 mg QHS PO Last administered on 10/02/17at 19:28; Start 10/01/17 at 21:00 Quetiapine Fumarate (SEROquel) 12.5 mg 0900,1300,1700 PO ; Start 10/03/17 at 09: 00 Active Scripts Active Reported Metoprolol Succinate ( Xl ) (Metoprolol Succinate) 50 Mg Tab.er.24h 50 Mg PO DAILY Metformin Hcl 1,000 Mg Tablet 1,000 Mg PO BIDWMEALS Amlodipine Besylate 10 Mg Tablet 10 Mg PO DAILY Tamsulosin Hcl 0.4 Mg Cap.er.24h 0.4 Mg PO DAILY Glimepiride 4 Mg Tablet 8 Mg PO DAILY Donepezil Hcl 10 Mg Tablet 10 Mg PO DAILY I have reviewed the current psychotropics carefully including drug interactions. Risk benefit ratio favors no change other than as noted in my dictated progress note. Diagnosis: Problems: (1) Anxiety disorder (2) Impulse control disorder (3) Dementia, vascular, with depression (4) Dementia, vascular, with delusions (5) Dementia in Alzheimer's disease with depression (6) Dementia in Alzheimer's disease with delusions JAJA SIERRA MD October 02, 2017 19:47
--- NOTE | 2017-10-02 20:24 | PDOC ---
Exam Note: Arik Note: Please also refer to the separate dictated note~for this date of service dictated separately.~Patient seen individually. Discussed the patient with Nursing staff reviewed the chart.~Reviewed interim history and current functioning. Reviewed vital signs,~Labs/ Radiology~and current medications noted below. Continue current treatment with the changes noted in the dictated addendum note Assessment: Vital Signs: Vital Signs Date Time Temp Pulse Resp B/P (MAP) Pulse Ox O2 Delivery O2 Flow Rate FiO2 10/02/17 16:21 97.3 64 18 126/64 (84) 98 10/01/17 16:35 Room Air I&O Intake and Output 10/02/17 07:00 Intake Total 1200 ml Balance 1200 ml Intake Oral 1200 ml # Bowel Movements 2 Labs: Laboratory Tests Test 10/02/17 07:23 Glucose (Fingerstick) 154 mg/dL (70-99) H Current Medications: Meds: Current Medications Olanzapine (ZyPREXA ZYDIS) 2.5 mg PRN Q2HR PRN PO PSYCHOSIS Last administered on 09/24/17at 11:00; Start 09/15/17 at 18:45 Acetaminophen (Tylenol) 650 mg PRN Q6HRS PRN PO PAIN / TEMP; Start 09/15/17 at 19:30 Multi-Ingredient Ointment (Analgesic [place]) 1 rosalino PRN QID PRN TP MUSCLE PAIN; Start 09/15/17 at 19:30 Al Hydroxide/Mg Hydroxide (Mylanta Plus Xs) 15 ml PRN AFTMEALHC PRN PO DYSPEPSIA; Start 09/15/17 at 19:30 Magnesium Hydroxide (Milk Of Magnesia) 2,400 mg PRN QHS PRN PO CONSTIPATION; Start 09/15/17 at 19:30 Donepezil HCl (Aricept) 10 mg DAILY PO Last administered on 10/02/17at 08:03; Start 09/16/17 at 09:00 Amlodipine Besylate (Norvasc) 10 mg DAILY PO Last administered on 10/02/17at 08: 03; Start 09/16/17 at 09:00 Metoprolol Succinate (Toprol Xl) 50 mg DAILY PO Last administered on 10/02/17 08:04; Start 09/16/17 at 09:00 Tamsulosin HCl (Flomax) 0.4 mg DAILY PO Last administered on 10/02/17 08:04; Start 09/16/17 at 09:00 Glimepiride (Amaryl) 8 mg DAILYWBKFT PO Last administered on 10/02/17 08:04; Start 09/16/17 at 08:00 Metformin HCl (Glucophage) 1,000 mg BIDWMEALS PO Last administered on 09/16/17 09:38; Start 09/16/17 at 08:00; Stop 09/16/17 at 12:37; Status DC Metformin HCl (Glucophage Xr) 1,000 mg BIDWMEALS PO Last administered on 17:16; Start 09/17/17 at 08:00 Vitamin D (Vitamin D3) 50,000 unit WEEKLY PO Last administered on 10/01/17 08: 07; Start 09/17/17 at 09:00 Quetiapine Fumarate (SEROquel) 25 mg HS PO Last administered on 10/02/17 19:28 ; Start 09/16/17 at 21:00 Trazodone HCl (Desyrel) 50 mg PRN QHS PRN PO INSOMNIA, MAY REPEAT X1; Start 09/18/17 at 18:45 Sertraline HCl (Zoloft) 25 mg QHS PO Last administered on 09/21/17at 20:30; Start 09/18/17 at 21:00; Stop 09/21/17 at 23:50; Status DC Quetiapine Fumarate (SEROquel) 12.5 mg 0900,1300 PO Last administered on 13:22; Start 09/20/17 at 09:00; Stop 10/02/17 at 18:43; Status DC Sertraline HCl (Zoloft) 50 mg QHS PO Last administered on 09/30/17 19:55; Start 09/21/17 at 21:00; Stop 10/01/17 at 18:41; Status DC Quetiapine Fumarate (SEROquel) 25 mg HS PO Last administered on 09/22/17at 20:07 ; Start 09/22/17 at 18:00; Stop 09/22/17 at 21:01; Status DC Sertraline HCl (Zoloft) 75 mg QHS PO Last administered on 10/02/17at 19:28; Start 5/22/18 at 21:00 Quetiapine Fumarate (SEROquel) 12.5 mg 0900,1300,1700 PO ; Start 10/03/17 at 09: 00 Active Scripts Active Reported Metoprolol Succinate ( Xl ) (Metoprolol Succinate) 50 Mg Tab.er.24h 50 Mg PO DAILY Metformin Hcl 1,000 Mg Tablet 1,000 Mg PO BIDWMEALS Amlodipine Besylate 10 Mg Tablet 10 Mg PO DAILY Tamsulosin Hcl 0.4 Mg Cap.er.24h 0.4 Mg PO DAILY Glimepiride 4 Mg Tablet 8 Mg PO DAILY Donepezil Hcl 10 Mg Tablet 10 Mg PO DAILY I have reviewed the current psychotropics carefully including drug interactions. Risk benefit ratio favors no change other than as noted in my dictated progress note. Diagnosis: Problems: (1) Anxiety disorder (2) Impulse control disorder (3) Dementia, vascular, with depression (4) Dementia, vascular, with delusions (5) Dementia in Alzheimer's disease with depression (6) Dementia in Alzheimer's disease with delusions JAJA SIERRA MD October 02, 2017 20:24
--- NOTE | 2017-10-02 23:41 | PN ---
DATE: 10/01/2017 PSYCHIATRIC PROGRESS NOTE This is a late entry for 10/01/2017, covers elements not covered in my initial note of 10/01/2017. SUBJECTIVE: I met with the patient in the evening of 10/01/2017. Overall, the patient remains confused, somewhat withdrawn, anxious at times. No CV, , pulmonary, eye, ENT system symptoms on review. He slept 5-3/4 hours previous evening. He was talking about things that were not entirely connected with the situation per nursing report. MENTAL STATUS EXAM: The patient is oriented to himself, not very verbal, but otherwise interactive with me. Insight, judgment, recent and remote memory, attention, concentration, fund of knowledge poor, consistent with his diagnosis mentioned in my initial note. IMPRESSION: Major neurocognitive disorder, Alzheimer, vascular with delusion, depression, behavioral disturbance. Rest unchanged. PLAN: Increase Zoloft to 75 mg a day after he has been on 50 mg for 3 days. Continue Seroquel along with Zyprexa p.r.n. and scheduled Seroquel 25 mg at bedtime, trazodone p.r.n. May need to increase Seroquel further if agitation resurfaces. He is currently on Seroquel 12.5 mg b.i.d. JAJA SIERRA MD DR: BENNY/jose alberto JOB#: [id number] / [id number]
[2017-10-03 05:46] VITALS: BP 144/66
[2017-10-03] MEDS: DONEPEZIL HCL 10 MG TABLET PO SCH (08:04)
[2017-10-03] MEDS: TAMSULOSIN 0.4 MG CAP.ER.24H. PO SCH (08:05)
[2017-10-03] MEDS: metFORMIN XR 500 MG TAB.ER.24H PO SCH ×2 (08:05→16:54)
[2017-10-03] MEDS: amLODIPine BESYLATE 10 MG TABLET PO SCH (08:05)
[2017-10-03] MEDS: METOPROLOL SUCC 24HR ER 50 MG TAB.ER.24H. PO SCH (08:05)
[2017-10-03] MEDS: GLIMEPIRIDE 2 MG TABLET PO SCH (08:05)
[2017-10-03] MEDS: QUEtiapine 25 MG TABLET. PO SCH ×4 (08:06→19:31)
[2017-10-03 15:59] VITALS: BP 154/62
[2017-10-03] MEDS: SERTRALINE 50 MG TABLET. PO SCH (19:31)
--- NOTE | 2017-10-03 20:42 | PDOC ---
Exam Note: Arik Note: Please also refer to the separate dictated note~for this date of service dictated separately.~Patient seen individually. Discussed the patient with Nursing staff reviewed the chart.~Reviewed interim history and current functioning. Reviewed vital signs,~Labs/ Radiology~and current medications noted below. Continue current treatment with the changes noted in the dictated addendum note Assessment: Vital Signs: Vital Signs Date Time Temp Pulse Resp B/P (MAP) Pulse Ox O2 Delivery O2 Flow Rate FiO2 10/03/17 15:59 97.7 63 19 154/62 (92) 95 10/01/17 16:35 Room Air I&O Intake and Output 10/03/17 07:00 Intake Total 1020 ml Balance 1020 ml Intake Oral 1020 ml Labs: Laboratory Tests Test 10/03/17 07:23 Glucose (Fingerstick) 138 mg/dL (70-99) H Current Medications: Meds: Current Medications Olanzapine (ZyPREXA ZYDIS) 2.5 mg PRN Q2HR PRN PO PSYCHOSIS Last administered on 09/24/17at 11:00; Start 09/15/17 at 18:45 Acetaminophen (Tylenol) 650 mg PRN Q6HRS PRN PO PAIN / TEMP; Start 09/15/17 at 19:30 Multi-Ingredient Ointment (Analgesic [place]) 1 rosalino PRN QID PRN TP MUSCLE PAIN; Start 09/15/17 at 19:30 Al Hydroxide/Mg Hydroxide (Mylanta Plus Xs) 15 ml PRN AFTMEALHC PRN PO DYSPEPSIA; Start 09/15/17 at 19:30 Magnesium Hydroxide (Milk Of Magnesia) 2,400 mg PRN QHS PRN PO CONSTIPATION; Start 09/15/17 at 19:30 Donepezil HCl (Aricept) 10 mg DAILY PO Last administered on 10/03/17at 08:04; Start 09/16/17 at 09:00 Amlodipine Besylate (Norvasc) 10 mg DAILY PO Last administered on 10/03/17at 08: 05; Start 09/16/17 at 09:00 Metoprolol Succinate (Toprol Xl) 50 mg DAILY PO Last administered on 10/03/17at 08:05; Start 09/16/17 at 09:00 Tamsulosin HCl (Flomax) 0.4 mg DAILY PO Last administered on 5/24/18at 08:05; Start 09/16/17 at 09:00 Glimepiride (Amaryl) 8 mg DAILYWBKFT PO Last administered on 10/03/17at 08:05; Start 09/16/17 at 08:00 Metformin HCl (Glucophage) 1,000 mg BIDWMEALS PO Last administered on 09/16/17at 09:38; Start 09/16/17 at 08:00; Stop 09/16/17 at 12:37; Status DC Metformin HCl (Glucophage Xr) 1,000 mg BIDWMEALS PO Last administered on at 16:54; Start 09/17/17 at 08:00 Vitamin D (Vitamin D3) 50,000 unit WEEKLY PO Last administered on 10/01/17at 08: 07; Start 09/17/17 at 09:00 Quetiapine Fumarate (SEROquel) 25 mg HS PO Last administered on 10/03/17 19:31 ; Start 09/16/17 at 21:00 Trazodone HCl (Desyrel) 50 mg PRN QHS PRN PO INSOMNIA, SEPTEMBER REPEAT X1; Start 09/18/17 at 18:45 Sertraline HCl (Zoloft) 25 mg QHS PO Last administered on 09/21/17at 20:30; Start 09/18/17 at 21:00; Stop 09/21/17 at 23:50; Status DC Quetiapine Fumarate (SEROquel) 12.5 mg 0900,1300 PO Last administered on at 13:22; Start 09/20/17 at 09:00; Stop 10/02/17 at 18:43; Status DC Sertraline HCl (Zoloft) 50 mg QHS PO Last administered on 09/30/17at 19:55; Start 09/21/17 at 21:00; Stop 10/01/17 at 18:41; Status DC Quetiapine Fumarate (SEROquel) 25 mg HS PO Last administered on 09/22/17at 20:07 ; Start 09/22/17 at 18:00; Stop 09/22/17 at 21:01; Status DC Sertraline HCl (Zoloft) 75 mg QHS PO Last administered on 10/03/17at 19:31; Start 10/01/17 at 21:00 Quetiapine Fumarate (SEROquel) 12.5 mg 0900,1300,1700 PO Last administered on at 16:54; Start 10/03/17 at 09:00 Active Scripts Active Reported Metoprolol Succinate ( Xl ) (Metoprolol Succinate) 50 Mg Tab.er.24h 50 Mg PO DAILY Metformin Hcl 1,000 Mg Tablet 1,000 Mg PO BIDWMEALS Amlodipine Besylate 10 Mg Tablet 10 Mg PO DAILY Tamsulosin Hcl 0.4 Mg Cap.er.24h 0.4 Mg PO DAILY Glimepiride 4 Mg Tablet 8 Mg PO DAILY Donepezil Hcl 10 Mg Tablet 10 Mg PO DAILY I have reviewed the current psychotropics carefully including drug interactions. Risk benefit ratio favors no change other than as noted in my dictated progress note. Diagnosis: Problems: (1) Anxiety disorder (2) Impulse control disorder (3) Dementia, vascular, with depression (4) Dementia, vascular, with delusions (5) Dementia in Alzheimer's disease with depression (6) Dementia in Alzheimer's disease with delusions JAJA SIERRA MD October 03, 2017 20:42
[2017-10-04 05:16] VITALS: BP 158/70
[2017-10-04] MEDS: GLIMEPIRIDE 2 MG TABLET PO SCH (08:13)
[2017-10-04] MEDS: metFORMIN XR 500 MG TAB.ER.24H PO SCH ×2 (08:13→16:46)
[2017-10-04] MEDS: QUEtiapine 25 MG TABLET. PO SCH ×4 (08:14→19:41)
[2017-10-04] MEDS: amLODIPine BESYLATE 10 MG TABLET PO SCH (08:14)
[2017-10-04] MEDS: TAMSULOSIN 0.4 MG CAP.ER.24H. PO SCH (08:14)
[2017-10-04] MEDS: DONEPEZIL HCL 10 MG TABLET PO SCH (08:14)
[2017-10-04] MEDS: METOPROLOL SUCC 24HR ER 50 MG TAB.ER.24H. PO SCH (08:14)
[2017-10-04 16:13] VITALS: BP 136/76
[2017-10-04] MEDS: SERTRALINE 50 MG TABLET. PO SCH (19:41)
[2017-10-04] MEDS: MIRTAZAPINE 7.5 MG TABLET. PO SCH (19:43)
--- NOTE | 2017-10-04 19:46 | PDOC ---
Exam Note: Arik Note: Please also refer to the separate dictated note~for this date of service dictated separately.~Patient seen individually. Discussed the patient with Nursing staff reviewed the chart.~Reviewed interim history and current functioning. Reviewed vital signs,~Labs/ Radiology~and current medications noted below. Continue current treatment with the changes noted in the dictated addendum note Assessment: Vital Signs: Vital Signs Date Time Temp Pulse Resp B/P (MAP) Pulse Ox O2 Delivery O2 Flow Rate FiO2 10/04/17 16:13 97.9 56 18 136/76 (96) 95 Room Air I&O Intake and Output 10/04/17 07:00 Intake Total 960 ml Balance 960 ml Intake Oral 960 ml Labs: Laboratory Tests Test 10/04/17 07:22 Glucose (Fingerstick) 145 mg/dL (70-99) H Current Medications: Meds: Current Medications Olanzapine (ZyPREXA ZYDIS) 2.5 mg PRN Q2HR PRN PO PSYCHOSIS Last administered on 09/24/17at 11:00; Start 09/15/17 at 18:45 Acetaminophen (Tylenol) 650 mg PRN Q6HRS PRN PO PAIN / TEMP; Start 09/15/17 at 19:30 Multi-Ingredient Ointment (Analgesic [place]) 1 rosalino PRN QID PRN TP MUSCLE PAIN; Start 09/15/17 at 19:30 Al Hydroxide/Mg Hydroxide (Mylanta Plus Xs) 15 ml PRN AFTMEALHC PRN PO DYSPEPSIA; Start 09/15/17 at 19:30 Magnesium Hydroxide (Milk Of Magnesia) 2,400 mg PRN QHS PRN PO CONSTIPATION; Start 09/15/17 at 19:30 Donepezil HCl (Aricept) 10 mg DAILY PO Last administered on 10/04/17at 08:14; Start 09/16/17 at 09:00 Amlodipine Besylate (Norvasc) 10 mg DAILY PO Last administered on 10/04/17 08: 14; Start 09/16/17 at 09:00 Metoprolol Succinate (Toprol Xl) 50 mg DAILY PO Last administered on 10/04/17 08:14; Start 09/16/17 at 09:00 Tamsulosin HCl (Flomax) 0.4 mg DAILY PO Last administered on 10/04/17at 08:14; Start 09/16/17 at 09:00 Glimepiride (Amaryl) 8 mg DAILYWBKFT PO Last administered on 10/04/17at 08:13; Start 09/16/17 at 08:00 Metformin HCl (Glucophage) 1,000 mg BIDWMEALS PO Last administered on 09/16/17at 09:38; Start 09/16/17 at 08:00; Stop 09/16/17 at 12:37; Status DC Metformin HCl (Glucophage Xr) 1,000 mg BIDWMEALS PO Last administered on at 16:46; Start 09/17/17 at 08:00 Vitamin D (Vitamin D3) 50,000 unit WEEKLY PO Last administered on 10/01/17at 08: 07; Start 09/17/17 at 09:00 Quetiapine Fumarate (SEROquel) 25 mg HS PO Last administered on 10/04/17at 19:41 ; Start 09/16/17 at 21:00 Trazodone HCl (Desyrel) 50 mg PRN QHS PRN PO INSOMNIA, MAY REPEAT X1; Start 09/18/17 at 18:45 Sertraline HCl (Zoloft) 25 mg QHS PO Last administered on 09/21/17at 20:30; Start 09/18/17 at 21:00; Stop 09/21/17 at 23:50; Status DC Quetiapine Fumarate (SEROquel) 12.5 mg 0900,1300 PO Last administered on at 13:22; Start 09/20/17 at 09:00; Stop 10/02/17 at 18:43; Status DC Sertraline HCl (Zoloft) 50 mg QHS PO Last administered on 09/30/17at 19:55; Start 09/21/17 at 21:00; Stop 10/01/17 at 18:41; Status DC Quetiapine Fumarate (SEROquel) 25 mg HS PO Last administered on 09/22/17at 20:07 ; Start 09/22/17 at 18:00; Stop 09/22/17 at 21:01; Status DC Sertraline HCl (Zoloft) 75 mg QHS PO Last administered on 10/04/17 19:41; Start 10/01/17 at 21:00 Quetiapine Fumarate (SEROquel) 12.5 mg 0900,1300,1700 PO Last administered on at 16:47; Start 10/03/17 at 09:00 Mirtazapine (Remeron) 7.5 mg QHS PO Last administered on 10/04/17at 19:43; Start 10/04/17 at 21:00 Active Scripts Active Reported Metoprolol Succinate ( Xl ) (Metoprolol Succinate) 50 Mg Tab.er.24h 50 Mg PO DAILY Metformin Hcl 1,000 Mg Tablet 1,000 Mg PO BIDWMEALS Amlodipine Besylate 10 Mg Tablet 10 Mg PO DAILY Tamsulosin Hcl 0.4 Mg Cap.er.24h 0.4 Mg PO DAILY Glimepiride 4 Mg Tablet 8 Mg PO DAILY Donepezil Hcl 10 Mg Tablet 10 Mg PO DAILY I have reviewed the current psychotropics carefully including drug interactions. Risk benefit ratio favors no change other than as noted in my dictated progress note. Diagnosis: Problems: (1) Anxiety disorder (2) Impulse control disorder (3) Dementia, vascular, with depression (4) Dementia, vascular, with delusions (5) Dementia in Alzheimer's disease with depression (6) Dementia in Alzheimer's disease with delusions JAJA SIERRA MD October 04, 2017 19:46
--- NOTE | 2017-10-04 20:57 | PN ---
DATE: 10/02/2017 This is a late entry for 10/02/2017 covers elements not covered in my initial note of 10/02/2017. SUBJECTIVE: I met with the patient in the evening. The patient slept 6-1/2 hours. In the evening, he was more anxious, intrusive, irritable, labile at times. REVIEW OF SYSTEMS: No CV, , pulmonary, eye, ENT system symptoms on review. Reliability poor. MENTAL STATUS EXAM: Oriented to himself. Insight, judgment, recent and remote memory, attention, concentration, fund of knowledge poor, consistent with his diagnosis mentioned in my initial note. PLAN: Continue current psychotropics, but given his increased mood lability, which persists, we will increase the Seroquel from 12.5 mg b.i.d. to 12.5 mg 3 times a day. MAN Caitlin SIERRA MD DR: BENNY/jose alberto JOB#: [id number] / [id number]
--- NOTE | 2017-10-04 20:57 | PN ---
DATE: 10/03/2017 This is a late entry, 10/03/2017, covers the elements not covered in my initial note, 10/03/2017. SUBJECTIVE: I met with the patient in the evening and staffed at a treatment team meeting with the entire team in the morning. I reviewed the patient's history and diagnosis. The has finally agreed to have him transferred to a nursing facility rather than insisting on taking him home at discharge. He has been accepted at [facility] for next Saturday. REVIEW OF SYSTEMS: No CV, , pulmonary, eye, ENT system symptoms on review. Reliability poor. MENTAL STATUS EXAM: Oriented to himself. Insight, judgment, recent and remote memory, attention, concentration, fund of knowledge poor, consistent with his diagnosis as mentioned in my initial note. PLAN: Continue psychotropics as mentioned in my initial note, may need to increase Zoloft further prior to discharge. JAJA SIERRA MD DR: BENNY/jose alberto JOB#: [id number] / [id number]
[2017-10-05 06:21] VITALS: BP 179/82
[2017-10-05] MEDS: GLIMEPIRIDE 2 MG TABLET PO SCH (08:49)
[2017-10-05] MEDS: metFORMIN XR 500 MG TAB.ER.24H PO SCH ×2 (08:49→17:26)
[2017-10-05] MEDS: TAMSULOSIN 0.4 MG CAP.ER.24H. PO SCH (08:50)
[2017-10-05] MEDS: DONEPEZIL HCL 10 MG TABLET PO SCH (08:50)
[2017-10-05] MEDS: amLODIPine BESYLATE 10 MG TABLET PO SCH (08:51)
[2017-10-05] MEDS: QUEtiapine 25 MG TABLET. PO SCH ×4 (08:51→19:47)
[2017-10-05] MEDS: METOPROLOL SUCC 24HR ER 50 MG TAB.ER.24H. PO SCH (08:52)
[2017-10-05 09:35] LABS: BASO # 0.1 x10^3/uL (0.0-0.2); BASO % 1 % (0-3); EOS # 0.3 x10^3/uL (0.0-0.7); EOS % 2 % (0-3); HEMATOCRIT 44.8 % (39.0-53.0); HEMOGLOBIN 15.4 g/dL (13.0-17.5); LYMPH # 3.2 x10^3/uL (1.0-4.8); LYMPH % 29 % (24-48); MEAN CORPUSCULAR HEMOGLOBIN 30 pg (25-35); MEAN CORPUSCULAR HGB CONC 34 g/dL (31-37); MEAN CORPUSCULAR VOLUME 88 fL (79-100); MONO % 9 % (0-9); NEUT # 6.5 x10^3uL (1.8-7.7); NEUT % 58 % (31-73); PLATELET COUNT 327 x10^3/uL (140-400); RED BLOOD COUNT 5.12 x10^6/uL (4.30-5.70); RED CELL DISTRIBUTION WIDTH 13.7 % (11.5-14.5); WHITE BLOOD COUNT 11.1 x10^3/uL (4.0-11.0)
[2017-10-05 09:44] LABS: ALBUMIN 3.5 g/dL (3.4-5.0); ALBUMIN/GLOBULIN RATIO 0.9 (1.0-1.7); CALCIUM 9.1 mg/dL (8.5-10.1); POTASSIUM 4.1 mmol/L (3.5-5.1); TOTAL BILIRUBIN 0.7 mg/dL (0.2-1.0); TOTAL PROTEIN 7.4 g/dL (6.4-8.2)
[2017-10-05 16:18] VITALS: BP 144/77
[2017-10-05] MEDS: MIRTAZAPINE 7.5 MG TABLET. PO SCH (19:47)
[2017-10-05] MEDS: SERTRALINE 50 MG TABLET. PO SCH (19:47)
--- NOTE | 2017-10-05 23:18 | PDOC ---
Exam Note: Arik Note: Please also refer to the separate dictated note~for this date of service dictated separately.~Patient seen individually. Discussed the patient with Nursing staff reviewed the chart.~Reviewed interim history and current functioning. Reviewed vital signs,~Labs/ Radiology~and current medications noted below. Continue current treatment with the changes noted in the dictated addendum note Assessment: Vital Signs: Vital Signs Date Time Temp Pulse Resp B/P (MAP) Pulse Ox O2 Delivery O2 Flow Rate FiO2 10/05/17 16:18 97.0 62 18 144/77 (99) 95 10/04/17 16:13 Room Air I&O Intake and Output 10/05/17 07:00 Intake Total 1200 ml Balance 1200 ml Intake Oral 1200 ml Labs: Laboratory Tests Test 10/05/17 07:37 10/05/17 09:13 Glucose (Fingerstick) 172 mg/dL (70-99) H White Blood Count 11.1 x10^3/uL (4.0-11.0) H Red Blood Count 5.12 x10^6/uL (4.30-5.70) Hemoglobin 15.4 g/dL (13.0-17.5) Hematocrit 44.8 % (39.0-53.0) Mean Corpuscular Volume 88 fL (79-100) Mean Corpuscular Hemoglobin 30 pg (25-35) Mean Corpuscular Hemoglobin Concent 34 g/dL (31-37) Red Cell Distribution Width 13.7 % (11.5-14.5) Platelet Count 327 x10^3/uL (140-400) Neutrophils (%) (Auto) 58 % (31-73) Lymphocytes (%) (Auto) 29 % (24-48) Monocytes (%) (Auto) 9 % (0-9) Eosinophils (%) (Auto) 2 % (0-3) Basophils (%) (Auto) 1 % (0-3) Neutrophils # (Auto) 6.5 x10^3uL (1.8-7.7) Lymphocytes # (Auto) 3.2 x10^3/uL (1.0-4.8) Monocytes # (Auto) 1.0 x10^3/uL (0.0-1.1) Eosinophils # (Auto) 0.3 x10^3/uL (0.0-0.7) Basophils # (Auto) 0.1 x10^3/uL (0.0-0.2) Sodium Level 139 mmol/L (136-145) Potassium Level 4.1 mmol/L (3.5-5.1) Chloride Level 101 mmol/L (98-107) Carbon Dioxide Level 28 mmol/L (21-32) Anion Gap 10 (6-14) Blood Urea Nitrogen 12 mg/dL (8-26) Creatinine 1.0 mg/dL (0.7-1.3) Estimated GFR (Cockcroft-Gault) 71.0 BUN/Creatinine Ratio 12 (6-20) Glucose Level 243 mg/dL (70-99) H Calcium Level 9.1 mg/dL (8.5-10.1) Total Bilirubin 0.7 mg/dL (0.2-1.0) Aspartate Amino Transferase (AST) 16 U/L (15-37) Alanine Aminotransferase (ALT) 26 U/L (16-63) Alkaline Phosphatase 59 U/L (46-116) Total Protein 7.4 g/dL (6.4-8.2) Albumin 3.5 g/dL (3.4-5.0) Albumin/Globulin Ratio 0.9 (1.0-1.7) L Current Medications: Meds: Current Medications Olanzapine (ZyPREXA ZYDIS) 2.5 mg PRN Q2HR PRN PO PSYCHOSIS Last administered on 09/24/17at 11:00; Start 09/15/17 at 18:45 Acetaminophen (Tylenol) 650 mg PRN Q6HRS PRN PO PAIN / TEMP; Start 09/15/17 at 19:30 Multi-Ingredient Ointment (Analgesic [place]) 1 rosalino PRN QID PRN TP MUSCLE PAIN; Start 09/15/17 at 19:30 Al Hydroxide/Mg Hydroxide (Mylanta Plus Xs) 15 ml PRN AFTMEALHC PRN PO DYSPEPSIA; Start 09/15/17 at 19:30 Magnesium Hydroxide (Milk Of Magnesia) 2,400 mg PRN QHS PRN PO CONSTIPATION; Start 09/15/17 at 19:30 Donepezil HCl (Aricept) 10 mg DAILY PO Last administered on 10/05/17at 08:50; Start 09/16/17 at 09:00 Amlodipine Besylate (Norvasc) 10 mg DAILY PO Last administered on 10/05/17 08: 51; Start 09/16/17 at 09:00 Metoprolol Succinate (Toprol Xl) 50 mg DAILY PO Last administered on 10/05/17 08:52; Start 09/16/17 at 09:00 Tamsulosin HCl (Flomax) 0.4 mg DAILY PO Last administered on 10/05/17 08:50; Start 09/16/17 at 09:00 Glimepiride (Amaryl) 8 mg DAILYWBKFT PO Last administered on 10/05/17 08:49; Start 09/16/17 at 08:00 Metformin HCl (Glucophage) 1,000 mg BIDWMEALS PO Last administered on 09/16/17 09:38; Start 09/16/17 at 08:00; Stop 09/16/17 at 12:37; Status DC Metformin HCl (Glucophage Xr) 1,000 mg BIDWMEALS PO Last administered on 17:26; Start 09/17/17 at 08:00 Vitamin D (Vitamin D3) 50,000 unit WEEKLY PO Last administered on 10/01/17at 08: 07; Start 09/17/17 at 09:00 Quetiapine Fumarate (SEROquel) 25 mg HS PO Last administered on 10/05/17 19:47 ; Start 09/16/17 at 21:00 Trazodone HCl (Desyrel) 50 mg PRN QHS PRN PO INSOMNIA, MAY REPEAT X1; Start 09/18/17 at 18:45 Sertraline HCl (Zoloft) 25 mg QHS PO Last administered on 09/21/17at 20:30; Start 09/18/17 at 21:00; Stop 09/21/17 at 23:50; Status DC Quetiapine Fumarate (SEROquel) 12.5 mg 0900,1300 PO Last administered on at 13:22; Start 09/20/17 at 09:00; Stop 10/02/17 at 18:43; Status DC Sertraline HCl (Zoloft) 50 mg QHS PO Last administered on 09/30/17at 19:55; Start 09/21/17 at 21:00; Stop 10/01/17 at 18:41; Status DC Quetiapine Fumarate (SEROquel) 25 mg HS PO Last administered on 09/22/17at 20:07 ; Start 09/22/17 at 18:00; Stop 09/22/17 at 21:01; Status DC Sertraline HCl (Zoloft) 75 mg QHS PO Last administered on 10/05/17at 19:47; Start 10/01/17 at 21:00 Quetiapine Fumarate (SEROquel) 12.5 mg 0900,1300,1700 PO Last administered on at 17:26; Start 10/03/17 at 09:00 Mirtazapine (Remeron) 7.5 mg QHS PO Last administered on 10/05/17at 19:47; Start 10/04/17 at 21:00 Active Scripts Active Reported Metoprolol Succinate ( Xl ) (Metoprolol Succinate) 50 Mg Tab.er.24h 50 Mg PO DAILY Metformin Hcl 1,000 Mg Tablet 1,000 Mg PO BIDWMEALS Amlodipine Besylate 10 Mg Tablet 10 Mg PO DAILY Tamsulosin Hcl 0.4 Mg Cap.er.24h 0.4 Mg PO DAILY Glimepiride 4 Mg Tablet 8 Mg PO DAILY Donepezil Hcl 10 Mg Tablet 10 Mg PO DAILY I have reviewed the current psychotropics carefully including drug interactions. Risk benefit ratio favors no change other than as noted in my dictated progress note. Diagnosis: Problems: (1) Anxiety disorder (2) Impulse control disorder (3) Dementia, vascular, with depression (4) Dementia, vascular, with delusions (5) Dementia in Alzheimer's disease with depression (6) Dementia in Alzheimer's disease with delusions JAJA SIERRA MD October 05, 2017 23:18
[2017-10-06 06:16] VITALS: BP 153/73
[2017-10-06] MEDS: GLIMEPIRIDE 2 MG TABLET PO SCH (09:09)
[2017-10-06] MEDS: TAMSULOSIN 0.4 MG CAP.ER.24H. PO SCH (09:10)
[2017-10-06] MEDS: metFORMIN XR 500 MG TAB.ER.24H PO SCH ×2 (09:10→17:22)
[2017-10-06] MEDS: DONEPEZIL HCL 10 MG TABLET PO SCH (09:10)
[2017-10-06] MEDS: amLODIPine BESYLATE 10 MG TABLET PO SCH (09:11)
[2017-10-06] MEDS: QUEtiapine 25 MG TABLET. PO SCH ×4 (09:11→20:46)
[2017-10-06] MEDS: METOPROLOL SUCC 24HR ER 50 MG TAB.ER.24H. PO SCH (09:12)
[2017-10-06] MEDS ORDERED: ACET325T9 PO (16:28)
[2017-10-06] MEDS ORDERED: MAG30ORA2 PO (16:33)
[2017-10-06] MEDS ORDERED: MAGN2400 PO (16:36)
[2017-10-06] MEDS ORDERED: METH29OI TP (16:37)
[2017-10-06 16:43] VITALS: BP 114/65
[2017-10-06] MEDS ORDERED: MIRT15TA PO (17:05)
[2017-10-06] MEDS ORDERED: OLAN5TAB5 PO (17:05)
[2017-10-06] MEDS ORDERED: QUET25TA5 PO ×2 (17:06→17:07)
[2017-10-06] MEDS ORDERED: SERT50TA PO (17:08)
[2017-10-06] MEDS ORDERED: TRAZ50TA15 PO (17:09)
[2017-10-06] MEDS: MIRTAZAPINE 7.5 MG TABLET. PO SCH (20:46)
[2017-10-06] MEDS: SERTRALINE 50 MG TABLET. PO SCH (20:46)
--- NOTE | 2017-10-06 20:51 | PDOC ---
Exam Note: Arik Note: Please also refer to the separate dictated note~for this date of service dictated separately.~Patient seen individually. Discussed the patient with Nursing staff reviewed the chart.~Reviewed interim history and current functioning. Reviewed vital signs,~Labs/ Radiology~and current medications noted below. Continue current treatment with the changes noted in the dictated addendum note Assessment: Vital Signs: Vital Signs Date Time Temp Pulse Resp B/P (MAP) Pulse Ox O2 Delivery O2 Flow Rate FiO2 10/06/17 16:43 98.6 60 16 114/65 (81) 96 10/04/17 16:13 Room Air I&O Intake and Output 10/06/17 07:00 Intake Total 1040 ml Balance 1040 ml Intake Oral 1040 ml Labs: Laboratory Tests Test 10/06/17 07:36 Glucose (Fingerstick) 152 mg/dL (70-99) H Current Medications: Meds: Current Medications Olanzapine (ZyPREXA ZYDIS) 2.5 mg PRN Q2HR PRN PO PSYCHOSIS Last administered on 09/24/17at 11:00; Start 09/15/17 at 18:45 Acetaminophen (Tylenol) 650 mg PRN Q6HRS PRN PO PAIN / TEMP; Start 09/15/17 at 19:30 Multi-Ingredient Ointment (Analgesic [place]) 1 pilar PRN QID PRN TP MUSCLE PAIN; Start 09/15/17 at 19:30 Al Hydroxide/Mg Hydroxide (Mylanta Plus Xs) 15 ml PRN AFTMEALHC PRN PO DYSPEPSIA; Start 09/15/17 at 19:30 Magnesium Hydroxide (Milk Of Magnesia) 2,400 mg PRN QHS PRN PO CONSTIPATION; Start 09/15/17 at 19:30 Donepezil HCl (Aricept) 10 mg DAILY PO Last administered on 10/06/17at 09:10; Start 09/16/17 at 09:00 Amlodipine Besylate (Norvasc) 10 mg DAILY PO Last administered on 10/06/17 09: 11; Start 09/16/17 at 09:00 Metoprolol Succinate (Toprol Xl) 50 mg DAILY PO Last administered on 10/06/17 09:12; Start 09/16/17 at 09:00 Tamsulosin HCl (Flomax) 0.4 mg DAILY PO Last administered on 10/06/17 09:10; Start 09/16/17 at 09:00 Glimepiride (Amaryl) 8 mg DAILYWBKFT PO Last administered on 10/06/17at 09:09; Start 09/16/17 at 08:00 Metformin HCl (Glucophage) 1,000 mg BIDWMEALS PO Last administered on 09/16/17at 09:38; Start 09/16/17 at 08:00; Stop 09/16/17 at 12:37; Status DC Metformin HCl (Glucophage Xr) 1,000 mg BIDWMEALS PO Last administered on 17:22; Start 09/17/17 at 08:00 Vitamin D (Vitamin D3) 50,000 unit WEEKLY PO Last administered on 10/01/17at 08: 07; Start 09/17/17 at 09:00 Quetiapine Fumarate (SEROquel) 25 mg HS PO Last administered on 10/06/17at 20:46 ; Start 09/16/17 at 21:00 Trazodone HCl (Desyrel) 50 mg PRN QHS PRN PO INSOMNIA, SEPTEMBER REPEAT X1; Start 09/18/17 at 18:45 Sertraline HCl (Zoloft) 25 mg QHS PO Last administered on 09/21/17at 20:30; Start 09/18/17 at 21:00; Stop 09/21/17 at 23:50; Status DC Quetiapine Fumarate (SEROquel) 12.5 mg 0900,1300 PO Last administered on at 13:22; Start 09/20/17 at 09:00; Stop 10/02/17 at 18:43; Status DC Sertraline HCl (Zoloft) 50 mg QHS PO Last administered on 09/30/17at 19:55; Start 09/21/17 at 21:00; Stop 10/01/17 at 18:41; Status DC Quetiapine Fumarate (SEROquel) 25 mg HS PO Last administered on 09/22/17at 20:07 ; Start 09/22/17 at 18:00; Stop 09/22/17 at 21:01; Status DC Sertraline HCl (Zoloft) 75 mg QHS PO Last administered on 10/06/17at 20:46; Start 10/01/17 at 21:00 Quetiapine Fumarate (SEROquel) 12.5 mg 0900,1300,1700 PO Last administered on at 17:23; Start 10/03/17 at 09:00 Mirtazapine (Remeron) 7.5 mg QHS PO Last administered on 10/06/17at 20:46; Start 10/04/17 at 21:00 Active Scripts Active Reported Trazodone Hcl 50 Mg Tablet 1 Tab PO QHS PRN Zoloft (Sertraline Hcl) 50 Mg Tablet 75 Mg PO HS Seroquel (Quetiapine Fumarate) 25 Mg Tablet 12.5 Mg PO 0900,1300,1700 Seroquel (Quetiapine Fumarate) 25 Mg Tablet 1 Tab PO QHS Zyprexa Zydis (Olanzapine) 5 Mg Tab.rapdis 2.5 Mg PO PRN Q2HR PRN Remeron (Mirtazapine) 15 Mg Tablet 0.5 Tab PO QHS Analgesic [place] (Methyl Salicylate/Menthol) 28 Gm Oint...g. 1 Pilar TP QIDPRN PRN Milk Of Magnesia (Magnesium Hydroxide) 2,400 Mg/10 Ml Oral.susp 2,400 Mg PO HS PRN Mag-Al Plus Xs Suspension (Mag Hydrox/Al Hydrox/Simeth) 30 Ml Oral.susp 15 Ml PO PRN AFTMEAL PRN D3-50 (Cholecalciferol (Vitamin D3)) 50,000 Unit Capsule 1 Cap PO WEEKLY Tylenol (Acetaminophen) 325 Mg Tablet 2 Tab PO PRN Q6HRS PRN Metoprolol Succinate ( Xl ) (Metoprolol Succinate) 50 Mg Tab.er.24h 50 Mg PO DAILY Metformin Hcl 1,000 Mg Tablet 1,000 Mg PO BIDWMEALS Amlodipine Besylate 10 Mg Tablet 10 Mg PO DAILY Tamsulosin Hcl 0.4 Mg Cap.er.24h 0.4 Mg PO DAILY Glimepiride 4 Mg Tablet 8 Mg PO DAILY Donepezil Hcl 10 Mg Tablet 10 Mg PO DAILY I have reviewed the current psychotropics carefully including drug interactions. Risk benefit ratio favors no change other than as noted in my dictated progress note. Diagnosis: Problems: (1) Anxiety disorder (2) Impulse control disorder (3) Dementia, vascular, with depression (4) Dementia, vascular, with delusions (5) Dementia in Alzheimer's disease with depression (6) Dementia in Alzheimer's disease with delusions JAJA SIERRA MD October 06, 2017 20:51
[2017-10-07 06:24] VITALS: BP 177/88
[2017-10-07] MEDS: METOPROLOL SUCC 24HR ER 50 MG TAB.ER.24H. PO SCH (08:33)
[2017-10-07] MEDS: DONEPEZIL HCL 10 MG TABLET PO SCH (08:33)
[2017-10-07] MEDS: amLODIPine BESYLATE 10 MG TABLET PO SCH (08:34)
[2017-10-07] MEDS: GLIMEPIRIDE 2 MG TABLET PO SCH (08:35)
[2017-10-07] MEDS: metFORMIN XR 500 MG TAB.ER.24H PO SCH ×2 (08:36→17:15)
[2017-10-07] MEDS: TAMSULOSIN 0.4 MG CAP.ER.24H. PO SCH (08:37)
[2017-10-07] MEDS: QUEtiapine 25 MG TABLET. PO SCH ×4 (08:37→20:13)
[2017-10-07 15:39] VITALS: BP 123/70
[2017-10-07] MEDS: MIRTAZAPINE 7.5 MG TABLET. PO SCH (20:13)
[2017-10-07] MEDS: SERTRALINE 50 MG TABLET. PO SCH (20:13)
--- NOTE | 2017-10-07 20:30 | PDOC ---
Exam Note: Arik Note: Please also refer to the separate dictated note~for this date of service dictated separately.~Patient seen individually. Discussed the patient with Nursing staff reviewed the chart.~Reviewed interim history and current functioning. Reviewed vital signs,~Labs/ Radiology~and current medications noted below. Continue current treatment with the changes noted in the dictated addendum note Assessment: Vital Signs: Vital Signs Date Time Temp Pulse Resp B/P (MAP) Pulse Ox O2 Delivery O2 Flow Rate FiO2 10/07/17 15:39 97.1 60 16 123/70 (87) 94 10/07/17 06:24 Room Air I&O Intake and Output 10/07/17 07:00 Intake Total 1080 ml Balance 1080 ml Intake Oral 1080 ml # Voids 1 # Bowel Movements 1 Labs: Laboratory Tests Test 10/07/17 07:21 Glucose (Fingerstick) 126 mg/dL (70-99) H Current Medications: Meds: Current Medications Olanzapine (ZyPREXA ZYDIS) 2.5 mg PRN Q2HR PRN PO PSYCHOSIS Last administered on 09/24/17at 11:00; Start 09/15/17 at 18:45 Acetaminophen (Tylenol) 650 mg PRN Q6HRS PRN PO PAIN / TEMP; Start 09/15/17 at 19:30 Multi-Ingredient Ointment (Analgesic Tracy) 1 pilar PRN QID PRN TP MUSCLE PAIN; Start 09/15/17 at 19:30 Al Hydroxide/Mg Hydroxide (Mylanta Plus Xs) 15 ml PRN AFTMEALHC PRN PO DYSPEPSIA; Start 09/15/17 at 19:30 Magnesium Hydroxide (Milk Of Magnesia) 2,400 mg PRN QHS PRN PO CONSTIPATION; Start 09/15/17 at 19:30 Donepezil HCl (Aricept) 10 mg DAILY PO Last administered on 10/07/17at 08:33; Start 09/16/17 at 09:00 Amlodipine Besylate (Norvasc) 10 mg DAILY PO Last administered on 10/07/17at 08: 34; Start 09/16/17 at 09:00 Metoprolol Succinate (Toprol Xl) 50 mg DAILY PO Last administered on 10/07/17at 08:33; Start 09/16/17 at 09:00 Tamsulosin HCl (Flomax) 0.4 mg DAILY PO Last administered on 10/07/17 08:37; Start 09/16/17 at 09:00 Glimepiride (Amaryl) 8 mg DAILYWBKFT PO Last administered on 10/07/17 08:35; Start 09/16/17 at 08:00 Metformin HCl (Glucophage) 1,000 mg BIDWMEALS PO Last administered on 09/16/17at 09:38; Start 09/16/17 at 08:00; Stop 09/16/17 at 12:37; Status DC Metformin HCl (Glucophage Xr) 1,000 mg BIDWMEALS PO Last administered on 17:15; Start 09/17/17 at 08:00 Vitamin D (Vitamin D3) 50,000 unit WEEKLY PO Last administered on 10/01/17 08: 07; Start 09/17/17 at 09:00 Quetiapine Fumarate (SEROquel) 25 mg HS PO Last administered on 10/07/17 20:13 ; Start 09/16/17 at 21:00 Trazodone HCl (Desyrel) 50 mg PRN QHS PRN PO INSOMNIA, MAY REPEAT X1; Start 09/18/17 at 18:45 Sertraline HCl (Zoloft) 25 mg QHS PO Last administered on 09/21/17at 20:30; Start 09/18/17 at 21:00; Stop 09/21/17 at 23:50; Status DC Quetiapine Fumarate (SEROquel) 12.5 mg 0900,1300 PO Last administered on 13:22; Start 09/20/17 at 09:00; Stop 10/02/17 at 18:43; Status DC Sertraline HCl (Zoloft) 50 mg QHS PO Last administered on 09/30/17at 19:55; Start 09/21/17 at 21:00; Stop 10/01/17 at 18:41; Status DC Quetiapine Fumarate (SEROquel) 25 mg HS PO Last administered on 09/22/17 20:07 ; Start 09/22/17 at 18:00; Stop 09/22/17 at 21:01; Status DC Sertraline HCl (Zoloft) 75 mg QHS PO Last administered on 10/07/17at 20:13; Start 10/01/17 at 21:00 Quetiapine Fumarate (SEROquel) 12.5 mg 0900,1300,1700 PO Last administered on at 17:15; Start 10/03/17 at 09:00 Mirtazapine (Remeron) 7.5 mg QHS PO Last administered on 10/07/17at 20:13; Start 10/04/17 at 21:00 Active Scripts Active Reported Trazodone Hcl 50 Mg Tablet 1 Tab PO QHS PRN Zoloft (Sertraline Hcl) 50 Mg Tablet 75 Mg PO HS Seroquel (Quetiapine Fumarate) 25 Mg Tablet 12.5 Mg PO 0900,1300,1700 Seroquel (Quetiapine Fumarate) 25 Mg Tablet 1 Tab PO QHS Zyprexa Zydis (Olanzapine) 5 Mg Tab.rapdis 2.5 Mg PO PRN Q2HR PRN Remeron (Mirtazapine) 15 Mg Tablet 0.5 Tab PO QHS Analgesic Tracy (Methyl Salicylate/Menthol) 28 Gm Oint...g. 1 Pilar TP QIDPRN PRN Milk Of Magnesia (Magnesium Hydroxide) 2,400 Mg/10 Ml Oral.susp 2,400 Mg PO HS PRN Mag-Al Plus Xs Suspension (Mag Hydrox/Al Hydrox/Simeth) 30 Ml Oral.susp 15 Ml PO PRN AFTMEAL PRN D3-50 (Cholecalciferol (Vitamin D3)) 50,000 Unit Capsule 1 Cap PO WEEKLY Tylenol (Acetaminophen) 325 Mg Tablet 2 Tab PO PRN Q6HRS PRN Metoprolol Succinate ( Xl ) (Metoprolol Succinate) 50 Mg Tab.er.24h 50 Mg PO DAILY Metformin Hcl 1,000 Mg Tablet 1,000 Mg PO BIDWMEALS Amlodipine Besylate 10 Mg Tablet 10 Mg PO DAILY Tamsulosin Hcl 0.4 Mg Cap.er.24h 0.4 Mg PO DAILY Glimepiride 4 Mg Tablet 8 Mg PO DAILY Donepezil Hcl 10 Mg Tablet 10 Mg PO DAILY I have reviewed the current psychotropics carefully including drug interactions. Risk benefit ratio favors no change other than as noted in my dictated progress note. Diagnosis: Problems: (1) Anxiety disorder (2) Impulse control disorder (3) Dementia, vascular, with depression (4) Dementia, vascular, with delusions (5) Dementia in Alzheimer's disease with depression (6) Dementia in Alzheimer's disease with delusions JAJA SIERRA MD October 07, 2017 20:30
--- NOTE | 2017-10-08 00:39 | PN ---
DATE: 10/05/2017 PSYCHIATRIC PROGRESS NOTE This late entry 10/05/2017 covers elements not covered in my initial note of 10/05/2017. SUBJECTIVE: I met with the patient in the evening. The patient slept 6-1/2 hours previous evening, did well previous night and remains confused during the day, but redirectable. REVIEW OF SYSTEMS: No CV, , pulmonary, eye, ENT system symptoms on review. Reliability poor. MENTAL STATUS EXAM: Oriented to himself. Insight, judgment, recent and remote memory, attention, concentration, fund of knowledge poor, consistent with his diagnosis mentioned in my initial note. PLAN: Continue current psychotropics from initial note. MAN Caitlin SIERRA MD DR: BENNY/jose alberto JOB#: [id number] / [id number]
--- NOTE | 2017-10-08 00:46 | PN ---
DATE: 10/04/2017 PSYCHIATRIC PROGRESS NOTE This is a late entry for 10/04/2017, covers the elements not covered in my initial note of 10/04/2017. SUBJECTIVE: I met with the patient on the evening of 10/04/2017. The patient slept 3-1/2 hours the previous evening. He remains confused, somewhat anxious at times, but not aggressive, less delusional. REVIEW OF SYSTEMS: No CV, , pulmonary, eye, ENT system symptoms on review. Reliability poor. MENTAL STATUS EXAMINATION: Oriented to himself. Insight, judgment, recent and remote memory, attention, concentration, fund of knowledge poor, consistent with his diagnosis mentioned in my initial note. IMPRESSION: Unchanged from initial note. PLAN: Add Remeron 7.5 mg p.o. at bedtime, both for insomnia and anxiety symptoms. Continue rest unchanged. MAN Caitlin SIERRA MD DR: BENNY/jose alberto JOB#: [id number] / [id number]
[2017-10-08 06:20] VITALS: BP 152/76
[2017-10-08] MEDS: GLIMEPIRIDE 2 MG TABLET PO SCH (08:34)
[2017-10-08] MEDS: metFORMIN XR 500 MG TAB.ER.24H PO SCH (08:34)
[2017-10-08] MEDS: TAMSULOSIN 0.4 MG CAP.ER.24H. PO SCH (08:34)
[2017-10-08 08:35] VITALS: BP 152/76
[2017-10-08] MEDS: amLODIPine BESYLATE 10 MG TABLET PO SCH (08:35)
[2017-10-08] MEDS: QUEtiapine 25 MG TABLET. PO SCH ×2 (08:35→12:38)
[2017-10-08] MEDS: METOPROLOL SUCC 24HR ER 50 MG TAB.ER.24H. PO SCH (08:35)
[2017-10-08] MEDS: DONEPEZIL HCL 10 MG TABLET PO SCH (08:35)
[2017-10-08] MEDS: CHOLECALCIFEROL (VITAMIN D3) 50,000 UNIT CAPSULE PO SCH (08:37)
--- NOTE | 2017-10-08 20:32 | PDOC ---
Exam Note: Arik Note: Please also refer to the separate dictated note~for this date of service dictated separately.~Patient seen individually. Discussed the patient with Nursing staff reviewed the chart.~Reviewed interim history and current functioning. Reviewed vital signs,~Labs/ Radiology~and current medications noted below. Continue current treatment with the changes noted in the dictated addendum note Assessment: Vital Signs: Vital Signs Date Time Temp Pulse Resp B/P (MAP) Pulse Ox O2 Delivery O2 Flow Rate FiO2 10/08/17 08:35 64 152/76 10/08/17 06:20 97.8 20 94 10/07/17 06:24 Room Air I&O Intake and Output 10/08/17 07:00 Intake Total 1320 ml Balance 1320 ml Intake Oral 1320 ml # Voids 1 Labs: Laboratory Tests Test 10/08/17 07:13 Glucose (Fingerstick) 119 mg/dL (70-99) H Current Medications: Meds: Current Medications Olanzapine (ZyPREXA ZYDIS) 2.5 mg PRN Q2HR PRN PO PSYCHOSIS Last administered on 09/24/17at 11:00; Start 09/15/17 at 18:45; Stop 10/08/17 at 15:43; Status DC Acetaminophen (Tylenol) 650 mg PRN Q6HRS PRN PO PAIN / TEMP; Start 09/15/17 at 19:30; Stop 10/08/17 at 15:43; Status DC Multi-Ingredient Ointment (Analgesic Weldon) 1 pilar PRN QID PRN TP MUSCLE PAIN; Start 09/15/17 at 19:30; Stop 10/08/17 at 15:43; Status DC Al Hydroxide/Mg Hydroxide (Mylanta Plus Xs) 15 ml PRN AFTMEALHC PRN PO DYSPEPSIA; Start 09/15/17 at 19:30; Stop 10/08/17 at 15:43; Status DC Magnesium Hydroxide (Milk Of Magnesia) 2,400 mg PRN QHS PRN PO CONSTIPATION; Start 09/15/17 at 19:30; Stop 10/08/17 at 15:43; Status DC Donepezil HCl (Aricept) 10 mg DAILY PO Last administered on 10/08/17at 08:35; Start 09/16/17 at 09:00; Stop 10/08/17 at 15:43; Status DC Amlodipine Besylate (Norvasc) 10 mg DAILY PO Last administered on 10/08/17 08: 35; Start 09/16/17 at 09:00; Stop 10/08/17 at 15:43; Status DC Metoprolol Succinate (Toprol Xl) 50 mg DAILY PO Last administered on 10/08/17at 08:35; Start 09/16/17 at 09:00; Stop 10/08/17 at 15:43; Status DC Tamsulosin HCl (Flomax) 0.4 mg DAILY PO Last administered on 10/08/17at 08:34; Start 09/16/17 at 09:00; Stop 10/08/17 at 15:43; Status DC Glimepiride (Amaryl) 8 mg DAILYWBKFT PO Last administered on 10/08/17at 08:34; Start 09/16/17 at 08:00; Stop 10/08/17 at 15:43; Status DC Metformin HCl (Glucophage) 1,000 mg BIDWMEALS PO Last administered on 09/16/17at 09:38; Start 09/16/17 at 08:00; Stop 09/16/17 at 12:37; Status DC Metformin HCl (Glucophage Xr) 1,000 mg BIDWMEALS PO Last administered on at 08:34; Start 09/17/17 at 08:00; Stop 10/08/17 at 15:43; Status DC Vitamin D (Vitamin D3) 50,000 unit WEEKLY PO Last administered on 10/08/17at 08: 37; Start 09/17/17 at 09:00; Stop 10/08/17 at 15:43; Status DC Quetiapine Fumarate (SEROquel) 25 mg HS PO Last administered on 10/07/17at 20:13 ; Start 09/16/17 at 21:00; Stop 10/08/17 at 15:43; Status DC Trazodone HCl (Desyrel) 50 mg PRN QHS PRN PO INSOMNIA, MAY REPEAT X1; Start 09/18/17 at 18:45; Stop 10/08/17 at 15:43; Status DC Sertraline HCl (Zoloft) 25 mg QHS PO Last administered on 09/21/17at 20:30; Start 09/18/17 at 21:00; Stop 09/21/17 at 23:50; Status DC Quetiapine Fumarate (SEROquel) 12.5 mg 0900,1300 PO Last administered on at 13:22; Start 09/20/17 at 09:00; Stop 10/02/17 at 18:43; Status DC Sertraline HCl (Zoloft) 50 mg QHS PO Last administered on 09/30/17at 19:55; Start 09/21/17 at 21:00; Stop 10/01/17 at 18:41; Status DC Quetiapine Fumarate (SEROquel) 25 mg HS PO Last administered on 09/22/17at 20:07 ; Start 09/22/17 at 18:00; Stop 09/22/17 at 21:01; Status DC Sertraline HCl (Zoloft) 75 mg QHS PO Last administered on 10/07/17at 20:13; Start 10/01/17 at 21:00; Stop 10/08/17 at 15:43; Status DC Quetiapine Fumarate (SEROquel) 12.5 mg 0900,1300,1700 PO Last administered on at 12:38; Start 10/03/17 at 09:00; Stop 10/08/17 at 15:43; Status DC Mirtazapine (Remeron) 7.5 mg QHS PO Last administered on 10/07/17at 20:13; Start 10/04/17 at 21:00; Stop 10/08/17 at 15:43; Status DC Active Scripts Active Reported Trazodone Hcl 50 Mg Tablet 1 Tab PO QHS PRN Zoloft (Sertraline Hcl) 50 Mg Tablet 75 Mg PO HS Seroquel (Quetiapine Fumarate) 25 Mg Tablet 12.5 Mg PO 0900,1300,1700 Seroquel (Quetiapine Fumarate) 25 Mg Tablet 25 Mg PO QHS Zyprexa Zydis (Olanzapine) 5 Mg Tab.rapdis 2.5 Mg PO PRN Q2HR PRN MAx 10 mg in 24hr Remeron (Mirtazapine) 15 Mg Tablet 7.5 Mg PO QHS Analgesic Weldon (Methyl Salicylate/Menthol) 28 Gm Oint...g. 1 Pilar TP QIDPRN PRN Milk Of Magnesia (Magnesium Hydroxide) 2,400 Mg/10 Ml Oral.susp 2,400 Mg PO HS PRN Mag-Al Plus Xs Suspension (Mag Hydrox/Al Hydrox/Simeth) 30 Ml Oral.susp 15 Ml PO PRN AFTMEAL PRN D3-50 (Cholecalciferol (Vitamin D3)) 50,000 Unit Capsule 1 Cap PO WEEKLY Tylenol (Acetaminophen) 325 Mg Tablet 650 Mg PO PRN Q6HRS PRN Metoprolol Succinate ( Xl ) (Metoprolol Succinate) 50 Mg Tab.er.24h 50 Mg PO DAILY Metformin Hcl 1,000 Mg Tablet 1,000 Mg PO BIDWMEALS Amlodipine Besylate 10 Mg Tablet 10 Mg PO DAILY Tamsulosin Hcl 0.4 Mg Cap.er.24h 0.4 Mg PO DAILY Glimepiride 4 Mg Tablet 8 Mg PO DAILYWBKFT Donepezil Hcl 10 Mg Tablet 10 Mg PO DAILY I have reviewed the current psychotropics carefully including drug interactions. Risk benefit ratio favors no change other than as noted in my dictated progress note. Diagnosis: Problems: (1) Anxiety disorder (2) Impulse control disorder (3) Dementia, vascular, with depression (4) Dementia, vascular, with delusions (5) Dementia in Alzheimer's disease with depression (6) Dementia in Alzheimer's disease with delusions JAJA SIERRA MD October 08, 2017 20:32
--- NOTE | 2017-10-09 01:52 | PN ---
DATE: 10/06/2017 This is a late entry for 10/06/2017 and covers the elements not covered in my initial note of 10/06/2017. SUBJECTIVE: I met with the patient in the evening. The patient remains confused, somewhat anxious, but not aggressive. REVIEW OF SYSTEMS: No CV, , pulmonary, eye, ENT system symptoms on review. Reliability poor. MENTAL STATUS EXAM: Oriented to himself. Insight, judgment, recent and remote memory, attention, concentration, fund of knowledge poor, consistent with his diagnosis mentioned in my initial note. PLAN: Continue current psychotropics. Adjust further as clinically indicated. MAN Caitlin SIERRA MD DR: BENNY/jose alberto JOB#: [id number] / [id number]
--- NOTE | 2017-10-09 01:52 | PN ---
DATE: 10/07/2017 This is a late entry, 10/07/2017, covers the elements not covered in my initial note, 10/07/2017. SUBJECTIVE: I met with the patient in the evening. Overall, the patient has had a good day. He remains confused, trying to push the button to exit the doors, but otherwise redirectable. REVIEW OF SYSTEMS: No CV, , pulmonary, eye, ENT system symptoms on review. Reliability poor. MENTAL STATUS EXAM: Oriented to himself. Insight, judgment, recent and remote memory, attention, concentration, fund of knowledge poor, consistent with his diagnosis as mentioned in my initial note. PLAN: Continue current psychotropics. [facility] on 10/08/2017. MAN Caitlin SIERRA MD DR: BENNY/jose alberto JOB#: [id number] / [id number]
--- NOTE | 2017-10-10 13:11 | DS ---
DATE OF DISCHARGE: 10/08/2017 DISCHARGE SUMMARY/PSYCHIATRIC PROGRESS NOTE This is a late entry, date of service 10/08/2017, covers elements not covered in my initial note 10/08/2017. REASON FOR ADMISSION: Please refer to the admission history for details. Briefly, the patient is an 86-year-old male referred from the Emergency Room at [facility] where he presented with his on account of being resistive with cares. He was having multiple accidents and then wanting to leave the house when his was trying to clean him up. He believed a window was open. Extremely psychotic, agitated, disruptive. He had failed outpatient psychiatric interventions and the felt his behaviors were potentially dangerous, unmanageable at home where she was caring for him by herself and took him to the ER and then referral to us for psychiatric stabilization. SIGNIFICANT FINDINGS AND CLINICAL COURSE: Following admission, the patient was seen daily individually by myself from a psychiatric standpoint, medical followup per Dr. Valenzuela/Dr Diana. He remained confused, initially somewhat agitated, paranoid. Adjustments were made in his psychotropics. He seemed to respond to a combination of Aricept 10 mg a day, Zyprexa p.r.n., Seroquel 25 mg at bedtime, Zoloft 75 mg a day, Seroquel 12.5 mg at 9:00 a.m., 1:00 p.m., 5:00 p.m., trazodone 50 mg at bedtime p.r.n. insomnia, september repeat x 1. CONDITION AT DISCHARGE: Improved prior to discharge 10/08/2017. REVIEW OF SYSTEMS: No CV, , pulmonary, eye, ENT system symptoms on review. Reliability poor. MENTAL STATUS EXAM: Oriented to himself. Insight, judgment, recent and remote memory, attention, concentration, fund of knowledge poor, consistent with his diagnoses mentioned in my initial note. IMPRESSION: Major neurocognitive disorder, Alzheimer, vascular with depression, delusion, behavioral disturbance; anxiety disorder, unspecified; impulse control disorder, unspecified. Rest unchanged from admission. DISCHARGE MEDICATIONS: Please refer to the . DISCHARGE INSTRUCTIONS: [facility] psychiatric and [facility]. Time for discharge day management greater than 30 minutes. MAN Caitlin SIERRA MD DR: Humphrey JOB#: [id number] / [id number]
== END 2017-10-08 14:00 | DRG 57 ==
LOC: GEROPSY 18:00
PROVIDERS: ADMIT Psychiatry & Neurology Psychiatry; ATTEND Psychiatry & Neurology Psychiatry
DX: G30.9 Alzheimer's disease, unspecified (principal); F01.51 Vascular dementia, unspecified severity, with behavioral disturbance; E11.9 Type 2 diabetes mellitus without complications; F02.81 Dementia in other diseases classified elsewhere, unspecified severity, with behavioral disturbance; F32.9 Major depressive disorder, single episode, unspecified; F41.9 Anxiety disorder, unspecified; F63.9 Impulse disorder, unspecified; E78.5 Hyperlipidemia, unspecified; I10 Essential (primary) hypertension; K21.9 Gastro-esophageal reflux disease without esophagitis; N40.0 Benign prostatic hyperplasia without lower urinary tract symptoms; Z85.828 Personal history of other malignant neoplasm of skin; Z79.899 Other long term (current) drug therapy
CPT/HCPCS: 36415; 80053; 80061; 82306; 82607; 82947; 83036; 83540; 83550; 84436; 84443; 84480; 85025; 85027; 86593; 93005